=== PATIENT | female | born 1940 | race Caucasian/White ===

== ENCOUNTER 2018-10-17 10:53 | Emergency (ER) | payer MEDICARE, BC ==
--- OUTSIDE RECORDS SUMMARY | 2018-10-17 10:59 | XMS REPORT | Continuity of Care Document ---
:1940 External Reference #:[id number] Author Name Vonda Hardwick Care Team Providers Name Role Phone Stanislav Maldonado MD Care Team Information Feather Edger Unavailable Payers Date Identification Numbers Payment Provider Subscriber Policy Number: [id number] Medicare Vonda Epps PayID: [id number] [address] [place] [address] Policy Number: [id number] BS [employer]ets Vonda Epps PayID: [id number] [address] [address] [place] [address] Problems Active Problems Provider Date Rheumatoid arthritis Van Mccarthy M.D. Onset: 01/28/2012 Medications Mcfp (Current) Use Encounter Van Mccarthy M.D. Onset: Lumbosacral spondylosis without myelopathy Van Mccarthy M.D. Onset: 2011 Taking medication MADDIE Flanagan Onset: 08/24/2014 Social History Type Date Description Comments Sex Unknown ETOH Use Occasionally consumes alcohol Tobacco Use Start: Unknown End: Unknown Patient is a former smoker Smoking Status Reviewed: 09/20/18 Patient is a former smoker Allergies, Adverse Reactions, Alerts Description No Known Drug Allergies Medications Active Medications SIG Qnty Indications Ordering Provider Date Methotrexate 3 tbs by mouth 36tabs M06.09 MADDIE Flanagan 09/20/2018 2.5mg every week Tablets Z79.899 Shingrix 2 doses 4 month 2units Z23 MADDIE Flanagan 09/24/2017 50mcg Suspension apart Rec Simponi inject 50 mg under .5units M06.09 Stanislav Bray M.D. 02/08/2014 50mg/0.5ML Soln the skin every Prefill Syringe month Z79.899 Folic Acid take one tablet by 90tabs Z79.899 Rosibel Sarabia, [facility] 07/04/2010 1mg Tablets mouth every day Multi-Vitamin 1 po qd Unknown Tablets Olmesartan Medoxomil Unknown 20mg Tablets History Medications Methotrexate Sodium Take Four 48tabs M06.09 Rosibel Sarabai, 09/24/2017 - Tablets By Mouth [facility] 09/20/2018 2.5mg Tablets Every Week Z79.899 Malarone Take one tab po 15tabs V65.9 Rosibel Sarabia, 08/24/2014 - 250-100mg starting 2 days [facility] 11/27/2014 Tablets prior trip, continu e during trip and 7 days aftter out of endemic area.with food Cipro 1 by mouth twice 20tabs V65.9 Rosibel Sarabia, 08/24/2014 - 500mg Tablets a day [facility] 11/27/2014 Methotrexate take 4 tablets by 48tabs M06.09 Rosibel Sarabia, 02/08/2014 - 2.5mg mouth every week [facility] 09/24/2017 Tablets Z79.899 Methotrexate 3 tabs 1x per 714.0 Van Mccarthy M.D. 02/08/2014 - 2.5mg Tablets week 02/08/2014 V58.69 Methotrexate 4 tabs by 48tabs 714.0 Van Mccarthy, 02/05/2014 - 2.5mg mouth every M.D. 02/08/2014 Tablets week V58.69 Methotrexate 4 tbs by mouth 714.0 Rosibel Sarabia, [facility] 12/06/2013 - 2.5mg Tablets every week 12/06/2013 V58.69 Methotrexate 3 tbs alternate 48tabs 714.0 Rosibel Sarabia, 03/03/2013 - 2.5mg with 4 tabs by [employer] 12/06/2013 Tablets mouth every week V58.69 Humira Pen inject 40 mg 2units 714.0 Rosibel Sarabia, 07/15/2010 - subcutaneous once [employer] 02/08/2014 40mg/0.8ML Kit every other week V58.69 Methotrexate take 6 tablets 72tabs 714.0 Rosibel Sarabia, 07/15/2010 - 2.5mg by mouth every [employer] 03/03/2013 Tablets week V58.69 Omeprazole 1 po qd prn 30caps Unknown - 20mg 03/03/2013 Capsules Amlodipine Besylate Take One Tablet 30tabs Rosibel Sarabia, MADDIE - By Mouth Every 09/20/2018 2.5mg Tablets Day Immunizations CPT Code Status Date Vaccine Reaction Lot # [id number] Given 01/21/2018 Influenza Virus Vaccine, no immediate reaction [id number] Quadrivalent, Split, noted Preservative Free 80199 Given 02/09/2017 Influenza Virus Vaccine, no immediate reaction [id number] Quadrivalent, Split, noted Preservative Free 35307 Given 10/13/2016 Pneumonia Vaccine No initial reaction [id number] noted 48617 Given 02/05/2015 Influenza Virus Vaccine, [id number] Quadrivalent, Split, Preservative Free 12541 Given 01/02/2015 Pneumococcal Conjugate Vaccine 13 Valent For Intramuscular Use Vital Signs Date Vital Result Comment 09/20/2018 2:36pm Height 61.5 inches 5'1.50" Weight 135.25 lb Heart Rate 71 /min BP Systolic Sitting 124 mmHg BP Diastolic Sitting 72 mmHg O2 % BldC Oximetry 94 % BMI (Body Mass Index) 25.1 kg/m2 01/21/2018 9:38am Height 61.5 inches 5'1.50" Weight 139.25 lb Heart Rate 74 /min BP Systolic Sitting 136 mmHg BP Diastolic Sitting 76 mmHg Body Temperature 98.0 F Pain Level 0 O2 % BldC Oximetry 97 % BMI (Body Mass Index) 25.9 kg/m2 09/24/2017 11:01am Height 61.5 inches 5'1.50" Weight 138.00 lb Heart Rate 70 /min BP Systolic Sitting 136 mmHg BP Diastolic Sitting 78 mmHg Pain Level 0 O2 % BldC Oximetry 96 % BMI (Body Mass Index) 25.6 kg/m2 02/09/2017 10:10am Height 61.5 inches 5'1.50" Weight 137.50 lb Heart Rate 74 /min BP Systolic Sitting 134 mmHg BP Diastolic Sitting 68 mmHg Body Temperature 97.3 F O2 % BldC Oximetry 96 % BMI (Body Mass Index) 25.6 kg/m2 10/13/2016 10:33am Height 61.5 inches 5'1.50" Weight 135.00 lb Heart Rate 80 /min BP Systolic Sitting 140 mmHg BP Diastolic Sitting 70 mmHg Respiratory Rate 14 /min Pain Level 1 BMI (Body Mass Index) 25.1 kg/m2 01/21/2016 1:04pm Height 61.5 inches 5'1.50" Weight 137.50 lb Heart Rate 64 /min BP Systolic Sitting 140 mmHg BP Diastolic Sitting 66 mmHg Respiratory Rate 14 /min Body Temperature 98.8 F Pain Level 1 BMI (Body Mass Index) 25.6 kg/m2 09/27/2015 9:10am Height 61.5 inches 5'1.50" Weight 136.00 lb Heart Rate 80 /min BP Systolic Sitting 138 mmHg BP Diastolic Sitting 78 mmHg Body Temperature 98.4 F Pain Level 1 BMI (Body Mass Index) 25.3 kg/m2 02/05/2015 12:34pm Height 61.5 inches 5'1.50" Weight 136.25 lb Heart Rate 68 /min BP Systolic Sitting 140 mmHg BP Diastolic Sitting 78 mmHg Body Temperature 97.5 F Pain Level 0 BMI (Body Mass Index) 25.3 kg/m2 11/27/2014 9:35am Height 63 inches 5'3" Weight 137.00 lb Heart Rate 70 /min irreg BP Systolic Sitting 138 mmHg BP Diastolic Sitting 78 mmHg Pain Level 0 BMI (Body Mass Index) 24.3 kg/m2 08/27/2014 1:53pm Height 63 inches 5'3" Weight 133.00 lb Heart Rate 84 /min BP Systolic Sitting 140 mmHg BP Diastolic Sitting 78 mmHg Pain Level 1 BMI (Body Mass Index) 23.6 kg/m2 02/08/2014 11:29am Height 63 inches 5'3" Weight 132.50 lb Heart Rate 66 /min BP Systolic Sitting 130 mmHg BP Diastolic Sitting 82 mmHg Pain Level 0 BMI (Body Mass Index) 23.5 kg/m2 12/06/2013 2:27pm Height 63 inches 5'3" Weight 134.00 lb Heart Rate 76 /min BP Systolic Sitting 136 mmHg BP Diastolic Sitting 70 mmHg Pain Level 0 BMI (Body Mass Index) 23.7 kg/m2 09/13/2013 2:31pm Height 63 inches 5'3" Weight 134.00 lb Heart Rate 68 /min BP Systolic Sitting 130 mmHg BP Diastolic Sitting 74 mmHg BMI (Body Mass Index) 23.7 kg/m2 04/21/2013 8:40am Height 63 inches 5'3" Weight 132.50 lb Heart Rate 84 /min BP Systolic Sitting 134 mmHg BP Diastolic Sitting 78 mmHg BMI (Body Mass Index) 23.5 kg/m2 03/03/2013 12:57pm Height 63 inches 5'3" Weight 129.25 lb Heart Rate 76 /min BP Systolic Sitting 136 mmHg BP Diastolic Sitting 64 mmHg BMI (Body Mass Index) 22.9 kg/m2 11/17/2012 2:11pm Weight 131.00 lb Heart Rate 85 /min BP Systolic Sitting 122 mmHg BP Diastolic Sitting 64 mmHg 08/17/2012 2:06pm Height 65 inches 5'5" Weight 138.00 lb Heart Rate 74 /min BP Systolic Sitting 130 mmHg BP Diastolic Sitting 64 mmHg BMI (Body Mass Index) 23.0 kg/m2 04/21/2012 9:28am Height 65 inches 5'5" Weight 137.00 lb Heart Rate 77 /min BP Systolic Sitting 119 mmHg BP Diastolic Sitting 68 mmHg BMI (Body Mass Index) 22.8 kg/m2 01/28/2012 9:03am Height 65 inches 5'5" Weight 138.00 lb Heart Rate 71 /min BP Systolic Sitting 119 mmHg BP Diastolic Sitting 68 mmHg BMI (Body Mass Index) 23.0 kg/m2 10/27/2011 9:10am Height 65 inches 5'5" Weight 138.00 lb Heart Rate 72 /min BP Systolic Sitting 120 mmHg BP Diastolic Sitting 73 mmHg BMI (Body Mass Index) 23.0 kg/m2 07/14/2011 9:03am Height 65 inches 5'5" Weight 141.00 lb Heart Rate 78 /min BP Systolic Sitting 124 mmHg BP Diastolic Sitting 71 mmHg BMI (Body Mass Index) 23.5 kg/m2 03/05/2011 8:51am Weight 138.00 lb Heart Rate 76 /min BP Systolic 112 mmHg BP Diastolic 64 mmHg 12/15/2010 9:33am Height 61 inches 5'1" Weight 138.00 lb Heart Rate 78 /min BP Systolic 138 mmHg BP Diastolic 90 mmHg BMI (Body Mass Index) 26.1 kg/m2 10/07/2010 9:17am Height 61 inches 5'1" Weight 136.00 lb Heart Rate 72 /min BP Systolic 140 mmHg BP Diastolic 90 mmHg BMI (Body Mass Index) 25.7 kg/m2 07/15/2010 2:55pm Height 61 inches 5'1" Weight 138.00 lb Heart Rate 80 /min BP Systolic 138 mmHg BP Diastolic 76 mmHg BMI (Body Mass Index) 26.1 kg/m2 Results Test Date Facility Test Result H/L Range Note CBC Auto Diff 02/02/2018 [facility] White Blood 7.6 10^3/uL N 3.5-10.[address] [place] [address] [phone] Red Blood Count 3.56 10^6/uL Low 4.00-5.40 Hemoglobin 12.1 g/dL N 12.0-16.0 Hematocrit 35 % N 35-47 Mean Corpuscular Volume 99 fL High 80-97 Mean Corpuscular Hemoglobin 34 pg High 27-31 Mean Corpuscular HGB Conc 34 g/dL N 31-36 Red Cell Distribution Width 14 % N 10.5-15 Platelet Count 261 10^3/uL N 150-450 Mean Platelet Volume 7.9 um3 N 7.4-10.4 Abs Neutrophils 4.0 10^3/uL N 1.5-7.7 Abs Lymphocytes 2.7 10^3/uL N 1.0-4.8 Abs Monocytes 0.8 10^3/uL N 0-0.8 Abs Eosinophils 0.1 10^3/uL N 0-0.6 Abs Basophils 0 10^3/uL N 0-0.2 Abs Nucleated RBC 0 10^3/uL Granulocyte % 52.8 % N 38-83 Lymphocyte % 35.5 % N 25-47 Monocyte % 10.3 % High 0-7 Eosinophil % 1.1 % N 0-6 Basophil % 0.3 % N 0-2 Nucleated Red Blood Cells % 0 Comp Metabolic Panel 02/02/2018 [facility] Sodium 136 mmol/L N 135-[address] [place] [address] [phone] Potassium 5.0 mmol/L N 3.5-5.0 Chloride 103 mmol/L N 101-111 Co2 Carbon Dioxide 32 mmol/L N 22-32 Anion Gap 1 mmol/L Low 2-11 Glucose 82 mg/dL N 70-100 Blood Urea Nitrogen 18 mg/dL N 6-24 Creatinine 0.83 mg/dL N 0.51-0.95 BUN/Creatinine Ratio 21.7 High 8-20 Calcium 9.2 mg/dL N 8.6-10.3 Total Protein 6.5 g/dL N 6.4-8.9 Albumin 4.1 g/dL N 3.2-5.2 Globulin 2.4 g/dL N 2-4 Albumin/Globulin Ratio 1.7 N 1-3 Total Bilirubin 0.70 mg/dL N 0.2-1.0 Alkaline Phosphatase 54 U/L N 34-104 Alt 16 U/L N 7-52 Ast 20 U/L N 13-39 Egfr Non- 66.7 >60 Egfr 80.7 >60 1 Laboratory test 02/02/2018 [facility] C Reactive 2.35 mg/L N < 8.[address] [place] [address] [phone] Erythrocyte Sed Rate 19 mm/Hr N 0-40 Lipid Profile 11/23/2017 [facility] Triglycerides 89 mg/dL 2 (Trig/Chol/HDL) [address] [place] [address] [phone] Cholesterol 215 mg/dL 3 HDL Cholesterol 82.3 mg/dL 4 LDL Cholesterol 115 mg/dL 5 Comp Metabolic Panel 11/23/2017 [facility] Sodium 135 mmol/L N 135-[address] [place] [address] [phone] Potassium 4.3 mmol/L N 3.5-5.0 Chloride 101 mmol/L N 101-111 Co2 Carbon Dioxide 28 mmol/L N 22-32 Anion Gap 6 mmol/L N 2-11 Glucose 92 mg/dL N 70-100 Blood Urea Nitrogen 15 mg/dL N 6-24 Creatinine 0.83 mg/dL N 0.51-0.95 BUN/Creatinine Ratio 18.1 N 8-20 Calcium 9.1 mg/dL N 8.6-10.3 Total Protein 6.8 g/dL N 6.4-8.9 Albumin 4.0 g/dL N 3.2-5.2 Globulin 2.8 g/dL N 2-4 Albumin/Globulin Ratio 1.4 N 1-3 Total Bilirubin 0.90 mg/dL N 0.2-1.0 Alkaline Phosphatase 55 U/L N 34-104 Alt 16 U/L N 7-52 Ast 22 U/L N 13-39 Egfr Non- 66.7 >60 Egfr 80.7 >60 6 Laboratory test 11/23/2017 [facility] C Reactive 2.86 mg/L N < 8.01 [address] [place] [address] [phone] Erythrocyte Sed Rate 24 mm/Hr N 0-40 CBC Auto Diff 11/23/2017 [facility] White Blood 5.2 10^3/uL N 3.5-10.[address] [place] [address] [phone] Red Blood Count 3.67 10^6/uL Low 4.00-5.40 Hemoglobin 12.5 g/dL N 12.0-16.0 Hematocrit 36 % N 35-47 Mean Corpuscular Volume 99 fL High 80-97 Mean Corpuscular Hemoglobin 34 pg High 27-31 Mean Corpuscular HGB Conc 35 g/dL N 31-36 Red Cell Distribution Width 13 % N 10.5-15 Platelet Count 272 10^3/uL N 150-450 Mean Platelet Volume 8.1 um3 N 7.4-10.4 Abs Neutrophils 2.4 10^3/uL N 1.5-7.7 Abs Lymphocytes 2.1 10^3/uL N 1.0-4.8 Abs Monocytes 0.6 10^3/uL N 0-0.8 Abs Eosinophils 0.1 10^3/uL N 0-0.6 Abs Basophils 0 10^3/uL N 0-0.2 Abs Nucleated RBC 0 10^3/uL Granulocyte % 47.0 % N 38-83 Lymphocyte % 39.9 % N 25-47 Monocyte % 11.1 % High 0-7 Eosinophil % 1.5 % N 0-6 Basophil % 0.5 % N 0-2 Nucleated Red Blood Cells % 0 Comp Metabolic Panel 02/03/2017 [facility] Sodium 135 mmol/L N 133-[address] [place] [address] [phone] Potassium 4.7 mmol/L N 3.5-5.0 Chloride 100 mmol/L Low 101-111 Co2 Carbon Dioxide 31 mmol/L N 22-32 Anion Gap 4 mmol/L N 2-11 Glucose 84 mg/dL N 70-100 Blood Urea Nitrogen 11 mg/dL N 6-24 Creatinine 0.80 mg/dL N 0.51-0.95 BUN/Creatinine Ratio 13.8 N 8-20 Calcium 9.2 mg/dL N 8.6-10.3 Total Protein 6.9 g/dL N 6.4-8.9 Albumin 4.1 g/dL N 3.2-5.2 Globulin 2.8 g/dL N 2-4 Albumin/Globulin Ratio 1.5 N 1-3 Total Bilirubin 1.00 mg/dL N 0.2-1.0 Alkaline Phosphatase 51 U/L N 34-104 Alt 17 U/L N 7-52 Ast 24 U/L N 13-39 Egfr Non- 69.7 N >60 Egfr 89.7 N >60 8 Laboratory test 02/03/2017 [facility] C Reactive 2.63 mg/L N < 5.00 [address] [place] [address] [phone] Erythrocyte Sed Rate 20 mm/Hr N 0-40 Lipid Profile 02/03/2017 [facility] Triglycerides 74 mg/dL N 10 (Trig/Chol/HDL) [address] [place] [address] [phone] Cholesterol 234 mg/dL N 11 HDL Cholesterol 92.8 mg/dL N 12 LDL Cholesterol 126 mg/dL N 13 CBC Auto Diff 02/03/2017 [facility] White Blood 4.2 10^3/uL N 3.5-10.[address] [place] [address] [phone] Red Blood Count 3.72 10^6/uL Low 4.0-5.4 Hemoglobin 12.9 g/dL N 12.0-16.0 Hematocrit 37 % N 35-47 Mean Corpuscular Volume 100 fL High 80-97 Mean Corpuscular Hemoglobin 35 pg High 27-31 Mean Corpuscular HGB Conc 35 g/dL N 31-36 Red Cell Distribution Width 13 % N 10.5-15 Platelet Count 275 10^3/uL N 150-450 Mean Platelet Volume 8 um3 N 7.4-10.4 Abs Neutrophils 1.9 10^3/uL N 1.5-7.7 Abs Lymphocytes 1.8 10^3/uL N 1.0-4.8 Abs Monocytes 0.4 10^3/uL N 0-0.8 Abs Eosinophils 0.1 10^3/uL N 0-0.6 Abs Basophils 0 10^3/uL N 0-0.2 Abs Nucleated RBC 0 10^3/uL N Granulocyte % 45.1 % N 38-83 Lymphocyte % 42.5 % N 25-47 Monocyte % 10.7 % High 1-9 Eosinophil % 1.3 % N 0-6 Basophil % 0.4 % N 0-2 Nucleated Red Blood Cells % 0 N Comp Metabolic Panel 12/08/2016 [facility] Sodium 136 mmol/L N 133-[address] [place] [address] [phone] Potassium 4.3 mmol/L N 3.5-5.0 Chloride 102 mmol/L N 101-111 Co2 Carbon Dioxide 29 mmol/L N 22-32 Anion Gap 5 mmol/L N 2-11 Glucose 84 mg/dL N 70-100 Blood Urea Nitrogen 18 mg/dL N 6-24 Creatinine 0.76 mg/dL N 0.51-0.95 BUN/Creatinine Ratio 23.7 High 8-20 Calcium 8.8 mg/dL N 8.6-10.3 Total Protein 6.7 g/dL N 6.4-8.9 Albumin 4.0 g/dL N 3.2-5.2 Globulin 2.7 g/dL N 2-4 Albumin/Globulin Ratio 1.5 N 1-3 Total Bilirubin 0.70 mg/dL N 0.2-1.0 Alkaline Phosphatase 50 U/L N 34-104 Alt 13 U/L N 7-52 Ast 20 U/L N 13-39 Egfr Non- 74.0 N >60 Egfr 95.2 N >60 14 CBC Auto Diff 12/08/2016 [facility] White Blood 6.3 10^3/uL N 3.5-10.[address] [place] [address] [phone] Red Blood Count 3.43 10^6/uL Low 4.0-5.4 Hemoglobin 12.0 g/dL N 12.0-16.0 Hematocrit 35 % N 35-47 Mean Corpuscular Volume 102 fL High 80-97 Mean Corpuscular Hemoglobin 35 pg High 27-31 Mean Corpuscular HGB Conc 34 g/dL N 31-36 Red Cell Distribution Width 14 % N 10.5-15 Platelet Count 252 10^3/uL N 150-450 Mean Platelet Volume 9 um3 N 7.4-10.4 Abs Neutrophils 3.1 10^3/uL N 1.5-7.7 Abs Lymphocytes 2.6 10^3/uL N 1.0-4.8 Abs Monocytes 0.5 10^3/uL N 0-0.8 Abs Eosinophils 0.1 10^3/uL N 0-0.6 Abs Basophils 0 10^3/uL N 0-0.2 Abs Nucleated RBC 0.01 10^3/uL N Granulocyte % 48.8 % N 38-83 Lymphocyte % 40.8 % N 25-47 Monocyte % 8.7 % N 1-9 Eosinophil % 1.1 % N 0-6 Basophil % 0.6 % N 0-2 Nucleated Red Blood Cells % 0.1 N Laboratory test 12/08/2016 [facility] Erythrocyte Sed 25 mm/Hr N 0-[address] [place] [address] [phone] C Reactive Protein 3.14 mg/L N < 5.00 15 Laboratory test 10/12/2016 [facility] C Reactive 3.09 mg/L N < 5.00 [address] [place] [address] [phone] Erythrocyte Sed Rate 26 mm/Hr N 0-40 Hemoglobin A1c (Glyco HGB) 5.4 % N Less than 6.0 17 CMP Panel 10/12/2016 [facility] Sodium 134 mmol/L N 133-[address] [place] [address] [phone] Potassium 4.3 mmol/L N 3.5-5.0 Chloride 101 mmol/L N 101-111 Co2 Carbon Dioxide 28 mmol/L N 22-32 Anion Gap 5 mmol/L N 2-11 Glucose 152 mg/dL High 70-100 Blood Urea Nitrogen 12 mg/dL N 6-24 Creatinine 0.79 mg/dL N 0.51-0.95 BUN/Creatinine Ratio 15.2 N 8-20 Calcium 9.1 mg/dL N 8.6-10.3 Total Protein 6.7 g/dL N 6.4-8.9 Albumin 4.0 g/dL N 3.2-5.2 Globulin 2.7 g/dL N 2-4 Albumin/Globulin Ratio 1.5 N 1-3 Total Bilirubin 0.70 mg/dL N 0.2-1.0 Alkaline Phosphatase 55 U/L N 34-104 Alt 14 U/L N 7-52 Ast 20 U/L N 13-39 Egfr Non- 70.8 N >60 Egfr 91.0 N >60 18 CBC W/Auto 10/12/2016 [facility] White Blood 6.7 10^3/uL N 3.5 -10.[address] [place] [address] [phone] Red Blood Count 3.62 10^6/uL Low 4.0-5.4 Hemoglobin 12.0 g/dL N 12.0-16.0 Hematocrit 36 % N 35-47 Mean Corpuscular Volume 99 fL High 80-97 Mean Corpuscular Hemoglobin 33 pg High 27-31 Mean Corpuscular HGB Conc 34 g/dL N 31-36 Red Cell Distribution Width 14 % N 10.5-15 Platelet Count 245 10^3/uL N 150-450 Mean Platelet Volume 8 um3 N 7.4-10.4 Abs Neutrophils 3.7 10^3/uL N 1.5-7.7 Abs Lymphocytes 2.3 10^3/uL N 1.0-4.8 Abs Monocytes 0.5 10^3/uL N 0-0.8 Abs Eosinophils 0.1 10^3/uL N 0-0.6 Abs Basophils 0 10^3/uL N 0-0.2 Abs Nucleated RBC 0 10^3/uL N Granulocyte % 55.8 % N 38-83 Lymphocyte % 34.9 % N 25-47 Monocyte % 7.6 % N 1-9 Eosinophil % 1.2 % N 0-6 Basophil % 0.5 % N 0-2 Nucleated Red Blood Cells % 0.1 N Laboratory test 12/23/2015 [facility] Erythrocyte Sed 20 mm/Hr N 0-[address] [place] [address] [phone] C Reactive Protein 2.33 mg/L N < 5.00 19 CMP Panel 12/23/2015 [facility] Sodium 135 mmol/L N 133-[address] [place] [address] [phone] Potassium 4.3 mmol/L N 3.5-5.0 Chloride 101 mmol/L N 101-111 Co2 Carbon Dioxide 31 mmol/L N 22-32 Anion Gap 3 mmol/L N 2-11 Glucose 109 mg/dL High 70-100 Blood Urea Nitrogen 15 mg/dL N 6-24 Creatinine 0.76 mg/dL N 0.51-0.95 BUN/Creatinine Ratio 19.7 N 8-20 Calcium 9.2 mg/dL N 8.6-10.3 Total Protein 6.9 g/dL N 6.4-8.9 Albumin 4.1 g/dL N 3.2-5.2 Globulin 2.8 g/dL N 2-4 Albumin/Globulin Ratio 1.5 N 1-3 Total Bilirubin 0.70 mg/dL N 0.2-1.0 Alkaline Phosphatase 55 U/L N 34-104 Alt 14 U/L N 7-52 Ast 22 U/L N 13-39 Egfr Non- 74.2 N >60 Egfr 95.4 N >60 20 CBC W/Auto 12/23/2015 [facility] White Blood 5.4 10^3/uL N 3.5 -10.[address] [place] [address] [phone] Red Blood Count 3.83 10^6/uL Low 4.0-5.4 Hemoglobin 12.7 g/dL N 12.0-16.0 Hematocrit 38 % N 35-47 Mean Corpuscular Volume 99 fL High 80-97 Mean Corpuscular Hemoglobin 33 pg High 27-31 Mean Corpuscular HGB Conc 33 g/dL N 31-36 Red Cell Distribution Width 14 % N 10.5-15 Platelet Count 269 10^3/uL N 150-450 Mean Platelet Volume 9 um3 N 7.4-10.4 Abs Neutrophils 2.6 10^3/uL N 1.5-7.7 Abs Lymphocytes 2.3 10^3/uL N 1.0-4.8 Abs Monocytes 0.5 10^3/uL N 0-0.8 Abs Eosinophils 0.1 10^3/uL N 0-0.6 Abs Basophils 0 10^3/uL N 0-0.2 Abs Nucleated RBC 0 10^3/uL N Granulocyte % 48.5 % N 38-83 Lymphocyte % 41.5 % N 25-47 Monocyte % 8.6 % N 1-9 Eosinophil % 0.9 % N 0-6 Basophil % 0.5 % N 0-2 Nucleated Red Blood Cells % 0.1 N Laboratory test 10/01/2015 [facility] C Reactive 11.69 mg/L High < 5.00 [address] [place] [address] [phone] CBC Auto Diff 10/01/2015 [facility] White Blood 4.5 N 3.5- 10.[address] Count 10^3/[place] [address] [phone] Red Blood Count 3.68 10^6/uL Low 4.0-5.4 Hemoglobin 12.3 g/dL N 12.0-16.0 Hematocrit 38 % N 35-47 Mean Corpuscular Volume 102 fL High 80-97 Mean Corpuscular Hemoglobin 33 pg High 27-31 Mean Corpuscular HGB Conc 33 g/dL N 31-36 Red Cell Distribution Width 13 % N 10.5-15 Platelet Count 265 10^3/uL N 150-450 Mean Platelet Volume 8 um3 N 7.4-10.4 Abs Neutrophils 2.1 10^3/uL N 1.5-7.7 Abs Lymphocytes 1.7 10^3/uL N 1.0-4.8 Abs Monocytes 0.6 10^3/uL N 0-0.8 Abs Eosinophils 0.1 10^3/uL N 0-0.6 Abs Basophils 0 10^3/uL N 0-0.2 Abs Nucleated RBC 0 10^3/uL N Granulocyte % 46.8 % N 38-83 Lymphocyte % 38.2 % N 25-47 Monocyte % 12.6 % High 1-9 Eosinophil % 2.0 % N 0-6 Basophil % 0.4 % N 0-2 Nucleated Red Blood Cells % 0.1 N Laboratory test 10/01/2015 [facility] Erythrocyte Sed 37 mm/Hr N 0-40 [address] [place] [address] [phone] Comp Metabolic 10/01/2015 [facility] Sodium 135 mmol/L N 133- [address] [place] [address] [phone] Potassium 4.6 mmol/L N 3.5-5.0 Chloride 99 mmol/L Low 101-111 Co2 Carbon Dioxide 31 mmol/L N 22-32 Anion Gap 5 mmol/L N 2-11 Glucose 82 mg/dL N 70-100 Blood Urea Nitrogen 14 mg/dL N 6-24 Creatinine 0.78 mg/dL N 0.51-0.95 BUN/Creatinine Ratio 17.9 N 8-20 Calcium 9.3 mg/dL N 8.6-10.3 Total Protein 7.1 g/dL N 6.4-8.9 Albumin 4.2 g/dL N 3.2-5.2 Globulin 2.9 g/dL N 2-4 Albumin/Globulin Ratio 1.4 N 1-3 Total Bilirubin 0.80 mg/dL N 0.2-1.0 Alkaline Phosphatase 54 U/L N 34-104 Alt 13 U/L N 7-52 Ast 20 U/L N 13-39 Egfr Non- 72.0 N >60 Egfr 92.6 N >60 23 CBC Auto Diff 02/04/2015 [facility] White Blood 5.8 10^3/uL N 4.8-10.[address] [place] [address] [phone] Red Blood Count 3.70 10^6/uL Low 4.0-5.4 Hemoglobin 12.7 g/dL N 12.0-16.0 Hematocrit 38 % N 35-47 Mean Corpuscular Volume 102 fL High 80-97 Mean Corpuscular Hemoglobin 34 pg High 27-31 Mean Corpuscular HGB Conc 34 g/dL N 31-36 Red Cell Distribution Width 14 % N 10.5-15 Platelet Count 278 10^3/uL N 150-450 Mean Platelet Volume 9 um3 N 7.4-10.4 Abs Neutrophils 3.2 10^3/uL N 1.5-7.7 Abs Lymphocytes 2.0 10^3/uL N 1.0-4.8 Abs Monocytes 0.5 10^3/uL N 0-0.8 Abs Eosinophils 0.1 10^3/uL N 0-0.6 Abs Basophils 0 10^3/uL N 0-0.2 Abs Nucleated RBC 0.01 10^3/uL N Granulocyte % 54.2 % N 38-83 Lymphocyte % 34.3 % N 25-47 Monocyte % 9.2 % High 1-9 Eosinophil % 1.4 % N 0-6 Basophil % 0.9 % N 0-2 Nucleated Red Blood Cells % 0.2 N Comp Metabolic Panel 02/04/2015 [facility] Sodium 133 mmol/L N 133-[address] [place] [address] [phone] Potassium 4.4 mmol/L N 3.5-5.0 Chloride 96 mmol/L Low 101-111 Co2 Carbon Dioxide 31 mmol/L N 22-32 Anion Gap 6 mmol/L N 2-11 Glucose 79 mg/dL N 70-100 Blood Urea Nitrogen 13 mg/dL N 6-24 Creatinine 0.71 mg/dL N 0.51-0.95 BUN/Creatinine Ratio 18.3 N 8-20 Calcium 9.2 mg/dL N 8.6-10.3 Total Protein 7.1 g/dL N 6.4-8.9 Albumin 4.2 g/dL N 3.2-5.2 Globulin 2.9 g/dL N 2-4 Albumin/Globulin Ratio 1.4 N 1-3 Total Bilirubin 0.80 mg/dL N 0.2-1.0 Alkaline Phosphatase 57 U/L N 34-104 Alt 20 U/L N 7-52 Ast 24 U/L N 13-39 Egfr Non- 80.5 N >60 Egfr 103.5 N >60 24 Laboratory test 02/04/2015 [facility] Erythrocyte Sed 21 mm/Hr N 0-[address] [place] [address] [phone] C Reactive Protein 3.35 mg/L N < 5.00 25 Comp Metabolic Panel 11/26/2014 Sodium 135 mmol/L N 133-145 Potassium 4.4 mmol/L N 3.5-5.0 Chloride 101 mmol/L N 101-111 Co2 Carbon Dioxide 29 mmol/L N 22-32 Anion Gap 5 mmol/L N 2-11 Glucose 93 mg/dL N 70-100 Blood Urea Nitrogen 17 mg/dL N 6-24 Creatinine 0.82 mg/dL N 0.51-0.95 BUN/Creatinine Ratio 20.7 High 8-20 Calcium 9.1 mg/dL N 8.6-10.3 Total Protein 6.7 g/dL N 6.4-8.9 Albumin 4.1 g/dL N 3.2-5.2 Globulin 2.6 g/dL N 2-4 Albumin/Globulin Ratio 1.6 N 1-3 Total Bilirubin 0.70 mg/dL N 0.2-1.0 Alkaline Phosphatase 57 U/L N 34-104 Alt 18 U/L N 7-52 Ast 23 U/L N 13-39 Egfr Non- 68.1 N >60 Egfr 87.6 N >60 26 CBC Auto Diff 11/26/2014 White Blood Count 6.2 10^3/uL N 4.8-10.8 Red Blood Count 3.56 10^6/uL Low 4.0-5.4 Hemoglobin 12.3 g/dL N 12.0-16.0 Hematocrit 36 % N 35-47 Mean Corpuscular Volume 101 fL High 80-97 Mean Corpuscular Hemoglobin 35 pg High 27-31 Mean Corpuscular HGB Conc 34 g/dL N 31-36 Red Cell Distribution Width 13 % N 10.5-15 Platelet Count 261 10^3/uL N 150-450 Mean Platelet Volume 9 um3 N 7.4-10.4 Abs Neutrophils 3.2 10^3/uL N 1.5-7.7 Abs Lymphocytes 2.2 10^3/uL N 1.0-4.8 Abs Monocytes 0.6 10^3/uL N 0-0.8 Abs Eosinophils 0.1 10^3/uL N 0-0.6 Abs Basophils 0 10^3/uL N 0-0.2 Abs Nucleated RBC 0 10^3/uL N Granulocyte % 52.3 % N 38-83 Lymphocyte % 35.1 % N 25-47 Monocyte % 10.4 % High 1-9 Eosinophil % 1.7 % N 0-6 Basophil % 0.5 % N 0-2 Nucleated Red Blood Cells % 0 N Laboratory test finding 11/26/2014 Erythrocyte Sed Rate 26 mm/Hr N 0-40 27 C Reactive Protein 3.72 mg/L N < 5.00 28 Laboratory test 01/12/2014 [facility] (Anti-Nuclear Reflexed to FA Abnormal Negative finding AB) Screen Histone Antibodies 1.2 U Abnormal 29 [facility] Hep-2 01/12/2014 [facility] Pattern Homogeneous N Negative [facility] Titer 1:320 N <1:80 [facility] Reviewed By MD Loly Cedeno N 30 Comp Metabolic Panel 01/12/2014 [facility] Sodium 136 mmol/L N 133-[address] [place] [address] [phone] Potassium 4.3 mmol/L N 3.7-5.6 Chloride 103 mmol/L N 101-111 Co2 Carbon Dioxide 27 mmol/L N 22-32 Anion Gap 6 mmol/L N 2-11 Glucose 80 mg/dL N 70-100 Blood Urea Nitrogen 12 mg/dL N 6-24 Creatinine 0.72 mg/dL N 0.51-0.95 BUN/Creatinine Ratio 16.7 N 8-20 Calcium 8.9 mg/dL N 8.6-10.3 Total Protein 6.9 g/dL N 6.4-8.9 Albumin 4.1 g/dL N 3.2-5.2 Globulin 2.8 g/dL N 2-4 Albumin/Globulin Ratio 1.5 N 1-3 Total Bilirubin 0.70 mg/dL N 0.2-1.0 Alkaline Phosphatase 65 U/L N 34-104 Alt 13 U/L N 7-52 Ast 20 U/L N 13-39 Egfr Non- 79.4 N >60 Egfr 102.1 N >60 31 Laboratory test 01/12/2014 [facility] C Reactive 5.68 mg/L High < 5.00 [address] [place] [address] [phone] CBC Auto Diff 01/12/2014 [facility] White Blood 5.5 N 4.8- 10.[address] Count 10^3/[place] [address] [phone] Red Blood Count 3.44 10^6/uL Low 4.0-5.4 Hemoglobin 11.8 g/dL Low 12.0-16.0 Hematocrit 34 % Low 35-47 Mean Corpuscular Volume 98 fL High 80-97 Mean Corpuscular Hemoglobin 34 pg High 27-31 Mean Corpuscular HGB Conc 35 g/dL N 31-36 Red Cell Distribution Width 13 % N 10.5-15 Platelet Count 251 10^3/uL N 150-450 Mean Platelet Volume 8 um3 N 7.4-10.4 Abs Neutrophils 2.9 10^3/uL N 1.5-7.7 Abs Lymphocytes 2.0 10^3/uL N 1.0-4.8 Abs Monocytes 0.5 10^3/uL N 0-0.8 Abs Eosinophils 0.1 10^3/uL N 0-0.6 Abs Basophils 0 10^3/uL N 0-0.2 Abs Nucleated RBC 0 10^3/uL N Granulocyte % 52.6 % N 38-83 Lymphocyte % 36.4 % N 25-47 Monocyte % 9.2 % High 1-9 Eosinophil % 1.1 % N 0-6 Basophil % 0.7 % N 0-2 Nucleated Red Blood Cells % 0 N Laboratory test 01/12/2014 [facility] Erythrocyte Sed 30 mm/Hr N 0-[address] [place] [address] [phone] Comp Metabolic 11/30/2013 Sodium 136 mmol/L N 133-145 Panel Potassium 4.3 mmol/L N 3.7-5.6 Chloride 101 mmol/L N 101-111 Co2 Carbon Dioxide 30 mmol/L N 22-32 Anion Gap 5 mmol/L N 2-11 Glucose 84 mg/dL N 70-100 Blood Urea Nitrogen 13 mg/dL N 6-24 Creatinine 0.77 mg/dL N 0.51-0.95 BUN/Creatinine Ratio 16.9 N 8-20 Calcium 9.2 mg/dL N 8.6-10.3 Total Protein 7.1 g/dL N 6.4-8.9 Albumin 4.2 g/dL N 3.2-5.2 Globulin 2.9 g/dL N 2-4 Albumin/Globulin Ratio 1.4 N 1-3 Total Bilirubin 0.80 mg/dL N 0.2-1.0 Alkaline Phosphatase 51 U/L N 34-104 Alt 15 U/L N 7-52 Ast 21 U/L N 13-39 Egfr Non- 73.5 N >60 Egfr 94.5 N >60 33 CBC Auto Diff 11/30/2013 White Blood Count 5.5 10^3/uL N 4.8-10.8 Red Blood Count 3.61 10^6/uL Low 4.0-5.4 Hemoglobin 12.5 g/dL N 12.0-16.0 Hematocrit 36 % N 35-47 Mean Corpuscular Volume 100 fL High 80-97 Mean Corpuscular Hemoglobin 35 pg High 27-31 Mean Corpuscular HGB Conc 35 g/dL N 31-36 Red Cell Distribution Width 13 % N 10.5-15 Platelet Count 251 10^3/uL N 150-450 Mean Platelet Volume 8 um3 N 7.4-10.4 Abs Neutrophils 2.7 10^3/uL N 1.5-7.7 Abs Lymphocytes 2.3 10^3/uL N 1.0-4.8 Abs Monocytes 0.5 10^3/uL N 0-0.8 Abs Eosinophils 0.1 10^3/uL N 0-0.6 Abs Basophils 0 10^3/uL N 0-0.2 Abs Nucleated RBC 0 10^3/uL N Granulocyte % 48.5 % N 38-83 Lymphocyte % 41.4 % N 25-47 Monocyte % 8.6 % N 1-9 Eosinophil % 1.2 % N 0-6 Basophil % 0.3 % N 0-2 Nucleated Red Blood Cells % 0 N Laboratory test finding 11/30/2013 Erythrocyte Sed Rate 25 mm/Hr N 0-40 C Reactive Protein 2.40 mg/L N < 5.00 34 CBC Auto Diff 10/09/2013 [facility] White Blood 6.2 10^3/uL N 4.8-10.[address] [place] [address] [phone] Red Blood Count 3.38 10^6/uL Low 4.0-5.4 Hemoglobin 11.8 g/dL Low 12.0-16.0 Hematocrit 34 % Low 35-47 Mean Corpuscular Volume 100 fL High 80-97 Mean Corpuscular Hemoglobin 35 pg High 27-31 Mean Corpuscular HGB Conc 35 g/dL N 31-36 Red Cell Distribution Width 13 % N 10.5-15 Platelet Count 270 10^3/uL N 150-450 Mean Platelet Volume 8 um3 N 7.4-10.4 Abs Neutrophils 3.1 10^3/uL N 1.5-7.7 Abs Lymphocytes 2.3 10^3/uL N 1.0-4.8 Abs Monocytes 0.6 10^3/uL N 0-0.8 Abs Eosinophils 0.1 10^3/uL N 0-0.6 Abs Basophils 0.1 10^3/uL N 0-0.2 Abs Nucleated RBC 0.01 10^3/uL N Granulocyte % 50.8 % N 38-83 Lymphocyte % 37.1 % N 25-47 Monocyte % 9.7 % High 1-9 Eosinophil % 0.9 % N 0-6 Basophil % 1.5 % N 0-2 Nucleated Red Blood Cells % 0.2 N Comp Metabolic Panel 10/09/2013 [facility] Sodium 136 mmol/L N 133-[address] [place] [address] [phone] Potassium 4.0 mmol/L N 3.7-5.6 Chloride 103 mmol/L N 101-111 Co2 Carbon Dioxide 30 mmol/L N 22-32 Anion Gap 3 mmol/L N 2-11 Glucose 80 mg/dL N 70-100 Blood Urea Nitrogen 16 mg/dL N 6-24 Creatinine 0.76 mg/dL N 0.51-0.95 BUN/Creatinine Ratio 21.1 High 8-20 Calcium 9.0 mg/dL N 8.6-10.3 Total Protein 6.7 g/dL N 6.4-8.9 Albumin 4.2 g/dL N 3.2-5.2 Globulin 2.5 g/dL N 2-4 Albumin/Globulin Ratio 1.7 N 1-3 Total Bilirubin 0.60 mg/dL N 0.2-1.0 Alkaline Phosphatase 52 U/L N 34-104 Alt 16 U/L N 7-52 Ast 23 U/L N 13-39 Egfr Non- 74.6 N >60 Egfr 95.9 N >60 35 Laboratory test 10/09/2013 [facility] C Reactive 3.33 mg/L N < 5.00 [address] [place] [address] [phone] Erythrocyte Sed Rate 24 mm/Hr N 0-40 Comp Metabolic Panel 08/11/2013 Sodium 138 mmol/L N 133-145 Potassium 4.1 mmol/L N 3.7-5.6 Chloride 101 mmol/L N 101-111 Co2 Carbon Dioxide 30 mmol/L N 22-32 Anion Gap 7 mmol/L N 2-11 Glucose 105 mg/dL High 70-100 Blood Urea Nitrogen 14 mg/dL N 6-24 Creatinine 0.76 mg/dL N 0.51-0.95 BUN/Creatinine Ratio 18.4 N 8-20 Calcium 9.3 mg/dL N 8.6-10.3 Total Protein 6.7 g/dL N 6.4-8.9 Albumin 4.4 g/dL N 3.2-5.2 Globulin 2.3 g/dL N 2-4 Albumin/Globulin Ratio 1.9 N 1-3 Total Bilirubin 1.20 mg/dL High 0.2-1.0 Alkaline Phosphatase 50 U/L N 34-104 Alt 15 U/L N 7-52 Ast 21 U/L N 13-39 Egfr Non- 74.6 N >60 Egfr 95.9 N >60 37 CBC Auto Diff 08/11/2013 White Blood Count 6.3 10^3/uL N 4.8-10.8 Red Blood Count 3.50 10^6/uL Low 4.0-5.4 Hemoglobin 12.4 g/dL N 12.0-16.0 Hematocrit 35 % N 35-47 Mean Corpuscular Volume 100 fL High 80-97 Mean Corpuscular Hemoglobin 36 pg High 27-31 Mean Corpuscular HGB Conc 35 g/dL N 31-36 Red Cell Distribution Width 13 % N 10.5-15 Platelet Count 262 10^3/uL N 150-450 Mean Platelet Volume 9 um3 N 7.4-10.4 Abs Neutrophils 3.2 10^3/uL N 1.5-7.7 Abs Lymphocytes 2.6 10^3/uL N 1.0-4.8 Abs Monocytes 0.5 10^3/uL N 0-0.8 Abs Eosinophils 0.1 10^3/uL N 0-0.6 Abs Basophils 0 10^3/uL N 0-0.2 Abs Nucleated RBC 0.01 10^3/uL N Granulocyte % 50.4 % N 38-83 Lymphocyte % 40.3 % N 25-47 Monocyte % 7.7 % N 1-9 Eosinophil % 1.1 % N 0-6 Basophil % 0.5 % N 0-2 Nucleated Red Blood Cells % 0.1 N Laboratory test finding 08/11/2013 C Reactive Protein 3.35 mg/L N < 5.00 38 Erythrocyte Sed Rate 22 mm/Hr N 0-40 Comp Metabolic Panel 04/05/2013 [facility] Sodium 137 mmol/L 133-[address] [place] [address] [phone] Potassium 3.9 mmol/L 3.5-5.0 Chloride 101 mmol/L 101-111 Co2 Carbon Dioxide 30.0 mmol/L 22-32 Anion Gap 6.0 mmol/L 2-11 Glucose 90 mg/dL 70-100 Blood Urea Nitrogen 12 mg/dL 6-24 Creatinine 0.70 mg/dL 0.50-1.40 BUN/Creatinine Ratio 17.1 8-20 Calcium 9.2 mg/dL 8.1-9.9 Total Protein 6.5 g/dL 6.2-8.1 Albumin 4.3 g/dL 3.2-5.2 Globulin 2.2 g/dL 2-4 Albumin/Globulin Ratio 2.0 1-3 Total Bilirubin 1.1 mg/dL 0.4-1.5 Alkaline Phosphatase 52 U/L 30-110 Alt 21 U/L 14-54 Ast 23 U/L 12-42 Egfr Non- 82.3 >60 Egfr 105.8 >60 39 Laboratory test 04/05/2013 [facility] C Reactive < 0.5 mg/dL Less than finding [address] Protein 0.[address] [place] [address] [phone] CBC Auto Diff 04/05/2013 [facility] White Blood 5.2 10^3/uL 4.8-10.[address] [place] [address] [phone] Red Blood Count 3.40 10^6/uL Low 4.0-5.4 Hemoglobin 11.7 g/dL Low 12.0-16.0 Hematocrit 34 % Low 35-47 Mean Corpuscular Volume 101 fL High 80-97 Mean Corpuscular Hemoglobin 34 pg High 27-31 Mean Corpuscular HGB Conc 34 g/dL 31-36 Red Cell Distribution Width 13 % 10.5-15 Platelet Count 266 10^3/uL 150-450 Mean Platelet Volume 8 um3 7.4-10.4 Abs Neutrophils 2.0 10^3/uL 1.5-7.7 Abs Lymphocytes 2.5 10^3/uL 1.0-4.8 Abs Monocytes 0.6 10^3/uL 0-0.8 Abs Eosinophils 0.1 10^3/uL 0-0.6 Abs Basophils 0 10^3/uL 0-0.2 Abs Nucleated RBC 0 10^3/uL Granulocyte % 39.0 % 38-83 Lymphocyte % 48.0 % High 25-47 Monocyte % 11.2 % High 1-9 Eosinophil % 1.4 % 0-6 Basophil % 0.4 % 0-2 Nucleated Red Blood Cells % 0.1 Laboratory test 04/05/2013 [facility] Erythrocyte Sed 24 mm/Hr 0-[address] [place] [address] [phone] CBC Auto Diff 01/26/2013 [facility] White Blood 6.2 4.8-10.[address] Count 10^3/[place] [address] [phone] Red Blood Count 3.46 10^6/uL Low 4.0-5.4 Hemoglobin 12.4 g/dL 12.0-16.0 Hematocrit 35 % 35-47 Mean Corpuscular Volume 102 fL High 80-97 40 Mean Corpuscular Hemoglobin 36 pg High 27-31 Mean Corpuscular HGB Conc 35 g/dL 31-36 Red Cell Distribution Width 13 % 10.5-15 Platelet Count 288 10^3/uL 150-450 Mean Platelet Volume 9 um3 7.4-10.4 Abs Neutrophils 3.4 10^3/uL 1.5-7.7 Abs Lymphocytes 2.2 10^3/uL 1.0-4.8 Abs Monocytes 0.5 10^3/uL 0-0.8 Abs Eosinophils 0.1 10^3/uL 0-0.6 Abs Basophils 0 10^3/uL 0-0.2 Abs Nucleated RBC 0 10^3/uL Granulocyte % 55.0 % 38-83 Lymphocyte % 34.8 % 25-47 Monocyte % 8.3 % 1-9 Eosinophil % 1.3 % 0-6 Basophil % 0.6 % 0-2 Nucleated Red Blood Cells % 0.1 Laboratory test 01/26/2013 [facility] Erythrocyte Sed 6 mm/Hr 0-[address] [place] [address] [phone] Comp Metabolic 01/26/2013 [facility] Sodium 138 mmol/L 133- [address] [place] [address] [phone] Potassium 4.2 mmol/L 3.5-5.0 Chloride 104 mmol/L 101-111 Co2 Carbon Dioxide 27.0 mmol/L 22-32 Anion Gap 7.0 mmol/L 2-11 Glucose 95 mg/dL 70-100 Blood Urea Nitrogen 9 mg/dL 6-24 Creatinine 0.80 mg/dL 0.50-1.40 BUN/Creatinine Ratio 11.3 8-20 Calcium 9.3 mg/dL 8.1-9.9 Total Protein 6.7 g/dL 6.2-8.1 Albumin 4.0 g/dL 3.2-5.2 Globulin 2.7 g/dL 2-4 Albumin/Globulin Ratio 1.5 1-3 Total Bilirubin 1.1 mg/dL 0.4-1.5 Alkaline Phosphatase 44 U/L 30-110 Alt 17 U/L 14-54 Ast 22 U/L 12-42 Egfr Non- 70.5 >60 Egfr 90.7 >60 41 Laboratory test 01/26/2013 [facility] C Reactive < 0.5 mg/dL Less than finding [address] Protein 0.5 [place] [address] [phone] Comp Metabolic 11/28/2012 [facility] Sodium 136 mmol/L 133- [address] [place] [address] [phone] Potassium 4.0 mmol/L 3.5-5.0 Chloride 103 mmol/L 101-111 Co2 Carbon Dioxide 28.0 mmol/L 22-32 Anion Gap 5.0 mmol/L 2-11 Glucose 88 mg/dL 70-100 Blood Urea Nitrogen 15 mg/dL 6-24 Creatinine 0.80 mg/dL 0.50-1.40 BUN/Creatinine Ratio 18.8 8-20 Calcium 9.1 mg/dL 8.1-9.9 Total Protein 6.6 g/dL 6.2-8.1 Albumin 3.8 g/dL 3.2-5.2 Globulin 2.8 g/dL 2-4 Albumin/Globulin Ratio 1.4 1-3 Total Bilirubin 1.0 mg/dL 0.4-1.5 Alkaline Phosphatase 53 U/L 30-110 Alt 19 U/L 14-54 Ast 26 U/L 12-42 Egfr Non- 70.5 >60 Egfr 90.7 >60 42 CBC Auto Diff 11/28/2012 [facility] White Blood 7.3 10^3/uL 4.8-10.[address] [place] [address] [phone] Red Blood Count 3.36 10^6/uL Low 4.0-5.4 Hemoglobin 11.7 g/dL Low 12.0-16.0 Hematocrit 34 % Low 35-47 Mean Corpuscular Volume 101 fL High 80-97 Mean Corpuscular Hemoglobin 35 pg High 27-31 Mean Corpuscular HGB Conc 35 g/dL 31-36 Red Cell Distribution Width 14 % 10.5-15 Platelet Count 248 10^3/uL 150-450 Mean Platelet Volume 9 um3 7.4-10.4 Abs Neutrophils 3.8 10^3/uL 1.5-7.7 Abs Lymphocytes 2.7 10^3/uL 1.0-4.8 Abs Monocytes 0.7 10^3/uL 0-0.8 Abs Eosinophils 0.1 10^3/uL 0-0.6 Abs Basophils 0 10^3/uL 0-0.2 Abs Nucleated RBC 0 10^3/uL Granulocyte % 51.6 % 38-83 Lymphocyte % 36.8 % 25-47 Monocyte % 10.1 % High 1-9 Eosinophil % 1.2 % 0-6 Basophil % 0.3 % 0-2 Nucleated Red Blood Cells % 0 Laboratory test 11/28/2012 [facility] C Reactive 0.9 mg/dL High Less than finding [address] Protein 0.5 [place] [address] [phone] Erythrocyte Sed Rate 20 mm/Hr 0-40 Comp Metabolic Panel 10/04/2012 [facility] Sodium 137 mmol/L 133-[address] [place], [place] [id number] [phone] Potassium 3.9 mmol/L 3.5-5.0 Chloride 100 mmol/L Low 101-111 Co2 Carbon Dioxide 31.0 mmol/L 22-32 Anion Gap 6.0 mmol/L 2-11 Glucose 114 mg/dL High 70-100 Blood Urea Nitrogen 10 mg/dL 6-24 Creatinine 0.80 mg/dL 0.50-1.40 BUN/Creatinine Ratio 12.5 8-20 Calcium 9.4 mg/dL 8.1-9.9 Total Protein 6.3 g/dL 6.2-8.1 Albumin 4.0 g/dL 3.2-5.2 Globulin 2.3 g/dL 2-4 Albumin/Globulin Ratio 1.7 1-3 Total Bilirubin 1.0 mg/dL 0.4-1.5 Alkaline Phosphatase 52 U/L 30-110 Alt 18 U/L 14-54 Ast 22 U/L 12-42 Egfr Non- 70.5 >60 Egfr 90.7 >60 43 Laboratory test 10/04/2012 [facility] C Reactive < 0.5 mg/dL Less than finding [address] Protein 0.[address] [place] [address] [phone] CBC With Manual 10/04/2012 [facility] White Blood 5.7 10^3/uL 4.8-10.[address] [place] [address] [phone] Red Blood Count 3.56 10^6/uL Low 4.0-5.4 Hemoglobin 12.7 g/dL 12.0-16.0 Hematocrit 36 % 35-47 Mean Corpuscular Volume 101 fL High 80-97 Mean Corpuscular Hemoglobin 36 pg High 27-31 Mean Corpuscular HGB Conc 35 g/dL 31-36 Red Cell Distribution Width 13 % 10.5-15 Platelet Count 256 10^3/uL 150-450 Mean Platelet Volume 9 um3 7.4-10.4 Abs Neutrophils 3.0 10^3/uL 1.5-7.7 Abs Lymphocytes 2.2 10^3/uL 1.0-4.8 Abs Monocytes 0.4 10^3/uL 0-0.8 Abs Eosinophils 0.1 10^3/uL 0-0.6 Abs Basophils 0 10^3/uL 0-0.2 Abs Nucleated RBC 0 10^3/uL Neutrophil % 53 % 38-83 Band % 1 % 0-8 Lymphocytes % 34 % 25-47 Monocytes % 8 % 0-13 Eosinophils % 2 % 0-6 Reactive Lymph % 2 % 0-6 Macrocytosis 1+ Laboratory test 10/04/2012 [facility] Erythrocyte Sed 20 mm/Hr 0-[address] [place] [address] [phone] Comp Metabolic 08/31/2012 [facility] Sodium 136 mmol/L 133- [address] [place] [address] [phone] Potassium 4.2 mmol/L 3.5-5.0 Chloride 103 mmol/L 101-111 Co2 Carbon Dioxide 28.0 mmol/L 22-32 Anion Gap 5.0 mmol/L 2-11 Glucose 103 mg/dL High 70-100 Blood Urea Nitrogen 9 mg/dL 6-24 Creatinine 0.70 mg/dL 0.50-1.40 BUN/Creatinine Ratio 12.9 8-20 Calcium 9.1 mg/dL 8.1-9.9 Total Protein 6.6 g/dL 6.2-8.1 Albumin 3.9 g/dL 3.2-5.2 Globulin 2.7 g/dL 2-4 Albumin/Globulin Ratio 1.4 1-3 Total Bilirubin 0.9 mg/dL 0.4-1.5 Alkaline Phosphatase 50 U/L 30-110 Alt 17 U/L 14-54 Ast 21 U/L 12-42 Egfr Non- 82.3 >60 Egfr 105.8 >60 44 Laboratory test 08/31/2012 [facility] C Reactive 0.7 mg/dL High Less than finding [address] Protein 0.5 [place] [address] [phone] CBC With Manual 08/31/2012 [facility] White Blood 4.3 Low 4.8- 10.[address] Count 10^3/[place] [address] [phone] Red Blood Count 3.43 10^6/uL Low 4.0-5.4 Hemoglobin 12.0 g/dL 12.0-16.0 Hematocrit 34 % Low 35-47 Mean Corpuscular Volume 100 fL High 80-97 Mean Corpuscular Hemoglobin 35 pg High 27-31 Mean Corpuscular HGB Conc 35 g/dL 31-36 Red Cell Distribution Width 13 % 10.5-15 Platelet Count 219 10^3/uL 150-450 Mean Platelet Volume 9 um3 7.4-10.4 Abs Neutrophils 1.7 10^3/uL 1.5-7.7 Abs Lymphocytes 1.9 10^3/uL 1.0-4.8 Abs Monocytes 0.6 10^3/uL 0-0.8 Abs Eosinophils 0.1 10^3/uL 0-0.6 Abs Basophils 0 10^3/uL 0-0.2 Abs Nucleated RBC 0 10^3/uL Neutrophil % 40 % 38-83 Lymphocytes % 50 % High 25-47 Monocytes % 9 % 0-13 Eosinophils % 1 % 0-6 RBC Morphology Normal Normal Laboratory test 08/31/2012 [facility] Pathologist Review (SEE NOTE) [address] [place] [address] [phone] Erythrocyte Sed Rate 25 mm/Hr 0-40 46 Comp Metabolic Panel 08/03/2012 [facility] Sodium 138 mmol/L 133-[address] [place] [address] [phone] Potassium 4.4 mmol/L 3.5-5.0 Chloride 101 mmol/L 101-111 Co2 Carbon Dioxide 28.0 mmol/L 22-32 Anion Gap 9.0 mmol/L 2-11 Glucose 97 mg/dL 70-100 Blood Urea Nitrogen 12 mg/dL 6-24 Creatinine 0.90 mg/dL 0.50-1.40 BUN/Creatinine Ratio 13.3 8-20 Calcium 9.3 mg/dL 8.1-9.9 Total Protein 6.1 g/dL Low 6.2-8.1 Albumin 4.0 g/dL 3.2-5.2 Globulin 2.1 g/dL 2-4 Albumin/Globulin Ratio 1.9 1-3 Total Bilirubin 0.7 mg/dL 0.4-1.5 Alkaline Phosphatase 58 U/L 30-110 Alt 19 U/L 14-54 Ast 22 U/L 12-42 Egfr Non- 61.5 >60 Egfr 79.2 >60 47 Laboratory test 08/03/2012 [facility] C Reactive 1.1 mg/dL High Less than finding [address] [place] [address] [phone] CBC With Manual 08/03/2012 [facility] White Blood 5.7 4.8- 10.[address] Count 10^3/[place] [address] [phone] Red Blood Count 3.49 10^6/uL Low 4.0-5.4 Hemoglobin 12.5 g/dL 12.0-16.0 Hematocrit 36 % 35-47 Mean Corpuscular Volume 102 fL High 80-97 Mean Corpuscular Hemoglobin 36 pg High 27-31 Mean Corpuscular HGB Conc 35 g/dL 31-36 Red Cell Distribution Width 13 % 10.5-15 Platelet Count 250 10^3/uL 150-450 Mean Platelet Volume 9 um3 7.4-10.4 Abs Neutrophils 2.8 10^3/uL 1.5-7.7 Abs Lymphocytes 2.0 10^3/uL 1.0-4.8 Abs Monocytes 0.8 10^3/uL 0-0.8 Abs Eosinophils 0.1 10^3/uL 0-0.6 Abs Basophils 0 10^3/uL 0-0.2 Abs Nucleated RBC 0.01 10^3/uL Neutrophil % 58 % 38-83 Band % 2 % 0-8 Lymphocytes % 31 % 25-47 Monocytes % 8 % 0-13 Eosinophils % 1 % 0-6 RBC Morphology Normal Normal Laboratory test 08/03/2012 [facility] Erythrocyte Sed 26 mm/Hr 0-[address] [place] [address] [phone] Laboratory test 04/19/2012 [facility] Erythrocyte Sed 22 mm/Hr 0-[address] [place] [address] [phone] CBC With Manual 04/19/2012 [facility] White Blood 6.3 4.8- 10.[address] Count 10^3/[place] [address] [phone] Red Blood Count 3.52 10^6/uL Low 4.0-5.4 Hemoglobin 12.3 g/dL 12.0-16.0 Hematocrit 36 % 35-47 Mean Corpuscular Volume 102 fL High 80-97 Mean Corpuscular Hemoglobin 35 pg High 27-31 Mean Corpuscular HGB Conc 34 g/dL 31-36 Red Cell Distribution Width 13 % 10.5-15 Platelet Count 261 10^3/uL 150-450 Mean Platelet Volume 9 um3 7.4-10.4 Abs Neutrophils 3.5 10^3/uL 1.5-7.7 Abs Lymphocytes 2.2 10^3/uL 1.0-4.8 Abs Monocytes 0.6 10^3/uL 0-0.8 Abs Eosinophils 0.1 10^3/uL 0-0.6 Abs Basophils 0 10^3/uL 0-0.2 Abs Nucleated RBC 0.01 10^3/uL Neutrophil % 60.0 % 38-83 Band % 6.0 % 0-8 Lymphocytes % 29.0 % 25-47 Monocytes % 5.0 % 0-13 Eosinophils % 0 % 0-6 Basophil % 0 % 0-2 Reactive Lymph % 0 % 0-6 Metamyelocytes % 0 % 0-2 Myelocytes % 0 % 0-1 Promyelocytes % 0 % Blast % 0 % Macrocytosis 1+ Hypochromasia 1+ Rouleaux 1+ Laboratory test 04/19/2012 [facility] C Reactive 0.6 mg/dL High Less than finding [address] Protein 0.[address] [place] [address] [phone] Liver Function 04/19/2012 [facility] Total Protein 6.6 g/dL 6.2-8.[address] [place] [address] [phone] Albumin 4.1 g/dL 3.2-5.2 Globulin 2.5 g/dL 2-4 Albumin/Globulin Ratio 1.6 1-3 Total Bilirubin 1.0 mg/dL 0.4-1.5 Direct Bilirubin 0.1 mg/dL 0.1-0.5 Indirect Bilirubin 0.9 mg/dL 0.3-1.0 Alkaline Phosphatase 64 U/L 30-110 Alt 22 U/L 14-54 Ast 24 U/L 12-42 Basic Metabolic Panel 04/19/2012 [facility] Sodium 134 mmol/L 133-[address] [place] [address] [phone] Potassium 4.6 mmol/L 3.5-5.0 Chloride 100 mmol/L Low 101-111 Co2 Carbon Dioxide 28.0 mmol/L 22-32 Anion Gap 6.0 mmol/L 2-11 Glucose 102 mg/dL High 70-100 Blood Urea Nitrogen 10 mg/dL 6-24 Creatinine 0.70 mg/dL 0.50-1.40 BUN/Creatinine Ratio 14.3 8-20 Calcium 9.2 mg/dL 8.1-9.9 Egfr Non- 82.5 >60 Egfr 106.1 >60 48 Laboratory test 01/27/2012 [facility] Erythrocyte Sed 20 MM/HR 0-[address] [place] [address] [phone] CBC Auto Diff 01/27/2012 [facility] White Blood 4.8 CUMM 4.8- 10.[address] [place] [address] [phone] Red Cell Count 3.52 CUMM Low 4.2-5.4 Hemoglobin 12.5 g/dL 12.0-16.0 Hematocrit 36 % 35-47 Mean Corpuscular Volume 102 um3 High 79-97 Mean Corpuscular Hemoglob 35 pg High 27-31 Mean Corpuscular HGB Cone 35 g/dL 32-36 Redcell Distribution WDTH 13 % 10.5-15 Platelet Count 251 CUMM 150-450 Mean Platelet Volume 8.7 um3 7.4-10.4 Gran % 47.7 % 38-83 Lymph % 40.8 % 20-45 Mononuclear % 9.3 % High 1-9 Eosinophil % 0.9 % 0-6 Basophil % 1.3 % 0-2 Abs Lymphs 1.9 1.0-4.8 Abs Mononuclear 0.4 0-0.8 Absolute Neutrophil Count 2.3 1.5-7.7 Abs Eosinophils 0 0-0.6 Abs Basophils 0.1 0-0.2 Laboratory test 01/27/2012 [facility] C Reactive < 0.5 mg/dL Less Than finding [address] Protein 0.[address] [place] [address] [phone] Liver Function 01/27/2012 [facility] Total Protein 6.3 GM/DL 6.2-8.[address] [place] [address] [phone] Albumin 4.1 GM/DL 3.2-5.2 Globulin 2.2 GM/DL 2-4 Albumin/Globulin Ratio 1.9 1-3 Bilirubin Total 1.5 mg/dL 0.4-1.5 49 Bilirubin Direct 0.3 mg/dL 0.1-0.5 Indirect Bilirubin 1.2 mg/dL High 0.3-1.0 50 Alkaline Phosphatase 59 U/L 30-110 Alt (SGPT) 22 U/L 14-54 Ast (Sgot) 27 U/L 12-42 Basic Metabolic Panel 01/27/2012 [facility] Sodium 135 mmol/L 135-[address] [place] [address] [phone] Potassium 4.9 mmol/L 3.5-5.0 Chloride 98 mmol/L Low 101-111 Co2 (Carbon Dioxide) 30.0 mmol/L 22-32 Anion Gap 7.0 mmol/L 2-11 51 Glucose 87 mg/dL 70-100 BUN 12 mg/dL 6-24 Creatinine 0.8 mg/dL 0.50-1.40 One Over Creatinine 1.25 BUN/Creatinine Ratio 15.0 8-20 Calcium 9.5 mg/dL 8.1-9.9 eGFR Non- 70.7 > 60 eGFR 90.9 > 60 52 Basic Metabolic Panel 11/20/2011 [facility] Sodium 138 mmol/L 135-[address] [place] [address] [phone] Potassium 4.4 mmol/L 3.5-5.0 Chloride 102 mmol/L 101-111 Co2 (Carbon Dioxide) 31.0 mmol/L 22-32 Anion Gap 5.0 mmol/L 2-11 53 Glucose 84 mg/dL 70-100 BUN 11 mg/dL 6-24 Creatinine 0.7 mg/dL 0.50-1.40 One Over Creatinine 1.42 BUN/Creatinine Ratio 15.7 8-20 Calcium 9.5 mg/dL 8.1-9.9 eGFR Non- 82.5 > 60 eGFR 106.1 > 60 54 Liver Function 11/20/2011 [facility] Total Protein 6.1 GM/DL Low 6.2-8.[address] [place] [address] [phone] Albumin 4.0 GM/DL 3.2-5.2 Globulin 2.1 GM/DL 2-4 Albumin/Globulin Ratio 1.9 1-3 Bilirubin Total 0.9 mg/dL 0.4-1.5 55 Bilirubin Direct 0.0 mg/dL Low 0.1-0.5 Indirect Bilirubin (SEE NOTE) mg/dL 0.3-1.0 56 Alkaline Phosphatase 53 U/L 30-110 Alt (SGPT) 20 U/L 14-54 Ast (Sgot) 24 U/L 12-42 Laboratory test 11/20/2011 [facility] C Reactive < 0.5 mg/dL Less Than finding [address] Protein 0.5 [place] [address] [phone] Erythrocyte Sed Rate 24 MM/HR 0-40 CBC Auto Diff 11/20/2011 [facility] White Blood 5.8 CUMM 4.8- 10.[address] [place] [address] [phone] Red Cell Count 3.35 CUMM Low 4.2-5.4 Hemoglobin 11.9 g/dL Low 12.0-16.0 Hematocrit 34 % Low 35-47 Mean Corpuscular Volume 102 um3 High 79-97 Mean Corpuscular Hemoglob 36 pg High 27-31 Mean Corpuscular HGB Cone 35 g/dL 32-36 Redcell Distribution WDTH 14 % 10.5-15 Platelet Count 245 CUMM 150-450 Mean Platelet Volume 8.4 um3 7.4-10.4 Gran % 50.6 % 38-83 Lymph % 37.7 % 20-45 Mononuclear % 10.0 % High 1-9 Eosinophil % 1.2 % 0-6 Basophil % 0.5 % 0-2 Abs Lymphs 2.2 1.0-4.8 Abs Mononuclear 0.6 0-0.8 Absolute Neutrophil Count 2.9 1.5-7.7 Abs Eosinophils 0.1 0-0.6 Abs Basophils 0 0-0.2 1 Because ethnic data is not always readily available, this report includes an eGFR for both -Americans and non- Americans. The National Kidney Disease Education Program (NKDEP) does not endorse the use of the MDRD equation for patients that are not between the ages of 18 and 70, are , have extremes of body size, muscle mass, or nutritional status, or are non- or non-. According to the [employer], irrespective of diagnosis, the stage of the disease is based on the level of kidney function: Stage Description GFR(mL/min/1.73 m(2)) 1 Kidney damage with normal or decreased GFR 90 2 Kidney damage with mild decrease in GFR 60-89 3 Moderate decrease in GFR 30-59 4 Severe decrease in GFR 15-29 5 Kidney failure <15 (or dialysis) 2 Desirable: <150 Borderline High: 150-199 High: 200-499 Very High: >500 3 Desirable: <200 Borderline High: 200-239 High: >239 4 Low: <40 Desirable: 40-60 High: >60 5 Desirable: <100 Near Optimal: 100-129 Borderline High: 130-159 High: 160-189 Very High: >189 6 Because ethnic data is not always readily available, this report includes an eGFR for both -Americans and non- Americans. The National Kidney Disease Education Program ([employer]) does not endorse the use of the MDRD equation for patients that are not between the ages of 18 and 70, are , have extremes of body size, muscle mass, or nutritional status, or are non- or non-. According to the National Kidney Foundation, irrespective of diagnosis, the stage of the disease is based on the level of kidney function: Stage Description GFR(mL/min/1.73 m(2)) 1 Kidney damage with normal or decreased GFR 90 2 Kidney damage with mild decrease in GFR 60-89 3 Moderate decrease in GFR 30-59 4 Severe decrease in GFR 15-29 5 Kidney failure <15 (or dialysis) 7 STANDING ORDER Q 8 WEEKS OR DIRECTED 8 Because ethnic data is not always readily available, this report includes an eGFR for both -Americans and non- Americans. The National Kidney Disease Education Program ([facility]DEP) does not endorse the use of the MDRD equation for patients that are not between the ages of 18 and 70, are , have extremes of body size, muscle mass, or nutritional status, or are non- or non-. According to the National Kidney Foundation, irrespective of diagnosis, the stage of the disease is based on the level of kidney function: Stage Description GFR(mL/min/1.73 m(2)) 1 Kidney damage with normal or decreased GFR 90 2 Kidney damage with mild decrease in GFR 60-89 3 Moderate decrease in GFR 30-59 4 Severe decrease in GFR 15-29 5 Kidney failure <15 (or dialysis) 9 Acute inflammation: >10.00 10 Desirable <150 Borderline high 150-199 High 200-499 Very High >500 11 Desirable <200 Borderline high 200-239 High >239 12 Low <40 Desirable: 40-60 High: >60 13 Desirable: <100 mg/dL Near Optimal: 100-129 mg/dL Borderline High: 130-159 mg/dL High: 160-189 mg/dL Very High: >189 mg/dL 14 Because ethnic data is not always readily available, this report includes an eGFR for both -Americans and non- Americans. The National Kidney Disease Education Program (NK[employer]) does not endorse the use of the MDRD equation for patients that are not between the ages of 18 and 70, are , have extremes of body size, muscle mass, or nutritional status, or are non- or non-. According to the National Kidney Foundation, irrespective of diagnosis, the stage of the disease is based on the level of kidney function: Stage Description GFR(mL/min/1.73 m(2)) 1 Kidney damage with normal or decreased GFR 90 2 Kidney damage with mild decrease in GFR 60-89 3 Moderate decrease in GFR 30-59 4 Severe decrease in GFR 15-29 5 Kidney failure <15 (or dialysis) 15 Acute inflammation: >10.00 16 Acute inflammation: >10.00 17 Therapeutic target for the treatment of diabetes Mellitus patients is <7% HBA1C, and in selective patients <6.0%.Please refer to [place] [employer] Diabetic care guidelines for further information. 18 Because ethnic data is not always readily available, this report includes an eGFR for both -Americans and non- Americans. The National Kidney Disease Education Program ([facility]DEP) does not endorse the use of the MDRD equation for patients that are not between the ages of 18 and 70, are , have extremes of body size, muscle mass, or nutritional status, or are non- or non-. According to the National Kidney Foundation, irrespective of diagnosis, the stage of the disease is based on the level of kidney function: Stage Description GFR(mL/min/1.73 m(2)) 1 Kidney damage with normal or decreased GFR 90 2 Kidney damage with mild decrease in GFR 60-89 3 Moderate decrease in GFR 30-59 4 Severe decrease in GFR 15-29 5 Kidney failure <15 (or dialysis) 19 Acute inflammation: >10.00 20 Because ethnic data is not always readily available, this report includes an eGFR for both -Americans and non- Americans. The National Kidney Disease Education Program (NKDEP) does not endorse the use of the MDRD equation for patients that are not between the ages of 18 and 70, are , have extremes of body size, muscle mass, or nutritional status, or are non- or non-. According to the National Kidney Foundation, irrespective of diagnosis, the stage of the disease is based on the level of kidney function: Stage Description GFR(mL/min/1.73 m(2)) 1 Kidney damage with normal or decreased GFR 90 2 Kidney damage with mild decrease in GFR 60-89 3 Moderate decrease in GFR 30-59 4 Severe decrease in GFR 15-29 5 Kidney failure <15 (or dialysis) 21 Acute inflammation: >10.00 22 standing order q 6 weeks 23 Because ethnic data is not always readily available, this report includes an eGFR for both -Americans and non- Americans. The National Kidney Disease Education Program (NKDEP) does not endorse the use of the MDRD equation for patients that are not between the ages of 18 and 70, are , have extremes of body size, muscle mass, or nutritional status, or are non- or non-. According to the National Kidney Foundation, irrespective of diagnosis, the stage of the disease is based on the level of kidney function: Stage Description GFR(mL/min/1.73 m(2)) 1 Kidney damage with normal or decreased GFR 90 2 Kidney damage with mild decrease in GFR 60-89 3 Moderate decrease in GFR 30-59 4 Severe decrease in GFR 15-29 5 Kidney failure <15 (or dialysis) 24 Because ethnic data is not always readily available, this report includes an eGFR for both -Americans and non- Americans. The National Kidney Disease Education Program (NKDEP) does not endorse the use of the MDRD equation for patients that are not between the ages of 18 and 70, are , have extremes of body size, muscle mass, or nutritional status, or are non- or non-. According to the National Kidney Foundation, irrespective of diagnosis, the stage of the disease is based on the level of kidney function: Stage Description GFR(mL/min/1.73 m(2)) 1 Kidney damage with normal or decreased GFR 90 2 Kidney damage with mild decrease in GFR 60-89 3 Moderate decrease in GFR 30-59 4 Severe decrease in GFR 15-29 5 Kidney failure <15 (or dialysis) 25 Acute inflammation: >10.00 26 Because ethnic data is not always readily available, this report includes an eGFR for both -Americans and non- Americans. The National Kidney Disease Education Program (NKDEP) does not endorse the use of the MDRD equation for patients that are not between the ages of 18 and 70, are , have extremes of body size, muscle mass, or nutritional status, or are non- or non-. According to the National Kidney Foundation, irrespective of diagnosis, the stage of the disease is based on the level of kidney function: Stage Description GFR(mL/min/1.73 m(2)) 1 Kidney damage with normal or decreased GFR 90 2 Kidney damage with mild decrease in GFR 60-89 3 Moderate decrease in GFR 30-59 4 Severe decrease in GFR 15-29 5 Kidney failure <15 (or dialysis) 27 PRN EXP: 04/12/15 28 Acute inflammation: >10.00 29 Interpretation: Borderline (1.0-1.5) -- REFERENCE VALUE -- <1.0 (Negative) Test Performed by: [place] [address] [employer]: Sanjay Velasquez III, M.D. 30 Loly Cedeno 31 Because ethnic data is not always readily available, this report includes an eGFR for both -Americans and non- Americans. The National Kidney Disease Education Program (NKDEP) does not endorse the use of the MDRD equation for patients that are not between the ages of 18 and 70, are , have extremes of body size, muscle mass, or nutritional status, or are non- or non-. According to the National Kidney Foundation, irrespective of diagnosis, the stage of the disease is based on the level of kidney function: Stage Description GFR(mL/min/1.73 m(2)) 1 Kidney damage with normal or decreased GFR 90 2 Kidney damage with mild decrease in GFR 60-89 3 Moderate decrease in GFR 30-59 4 Severe decrease in GFR 15-29 5 Kidney failure <15 (or dialysis) 32 Acute inflammation: >10.00 33 Because ethnic data is not always readily available, this report includes an eGFR for both -Americans and non- Americans. The National Kidney Disease Education Program (NKDEP) does not endorse the use of the MDRD equation for patients that are not between the ages of 18 and 70, are , have extremes of body size, muscle mass, or nutritional status, or are non- or non-. According to the National Kidney Foundation, irrespective of diagnosis, the stage of the disease is based on the level of kidney function: Stage Description GFR(mL/min/1.73 m(2)) 1 Kidney damage with normal or decreased GFR 90 2 Kidney damage with mild decrease in GFR 60-89 3 Moderate decrease in GFR 30-59 4 Severe decrease in GFR 15-29 5 Kidney failure <15 (or dialysis) 34 Acute inflammation: >10.00 35 Because ethnic data is not always readily available, this report includes an eGFR for both -Americans and non- Americans. The National Kidney Disease Education Program ([facility]) does not endorse the use of the MDRD equation for patients that are not between the ages of 18 and 70, are , have extremes of body size, muscle mass, or nutritional status, or are non- or non-. According to the National Kidney Foundation, irrespective of diagnosis, the stage of the disease is based on the level of kidney function: Stage Description GFR(mL/min/1.73 m(2)) 1 Kidney damage with normal or decreased GFR 90 2 Kidney damage with mild decrease in GFR 60-89 3 Moderate decrease in GFR 30-59 4 Severe decrease in GFR 15-29 5 Kidney failure <15 (or dialysis) 36 Acute inflammation: >10.00 37 Because ethnic data is not always readily available, this report includes an eGFR for both -Americans and non- Americans. The National Kidney Disease Education Program (NKDEP) does not endorse the use of the MDRD equation for patients that are not between the ages of 18 and 70, are , have extremes of body size, muscle mass, or nutritional status, or are non- or non-. According to the National Kidney Foundation, irrespective of diagnosis, the stage of the disease is based on the level of kidney function: Stage Description GFR(mL/min/1.73 m(2)) 1 Kidney damage with normal or decreased GFR 90 2 Kidney damage with mild decrease in GFR 60-89 3 Moderate decrease in GFR 30-59 4 Severe decrease in GFR 15-29 5 Kidney failure <15 (or dialysis) 38 Acute inflammation: >10.00 39 Because ethnic data is not always readily available, this report includes an eGFR for both -Americans and non- Americans. The National Kidney Disease Education Program (NKDEP) does not endorse the use of the MDRD equation for patients that are not between the ages of 18 and 70, are , have extremes of body size, muscle mass, or nutritional status, or are non- or non-. According to the National Kidney Foundation, irrespective of diagnosis, the stage of the disease is based on the level of kidney function: Stage Description GFR(mL/min/1.73 m(2)) 1 Kidney damage with normal or decreased GFR 90 2 Kidney damage with mild decrease in GFR 60-89 3 Moderate decrease in GFR 30-59 4 Severe decrease in GFR 15-29 5 Kidney failure <15 (or dialysis) 40 @Consistent with previous results 41 Because ethnic data is not always readily available, this report includes an eGFR for both -Americans and non- Americans. The National Kidney Disease Education Program (NKDEP) does not endorse the use of the MDRD equation for patients that are not between the ages of 18 and 70, are , have extremes of body size, muscle mass, or nutritional status, or are non- or non-. According to the National Kidney Foundation, irrespective of diagnosis, the stage of the disease is based on the level of kidney function: Stage Description GFR(mL/min/1.73 m(2)) 1 Kidney damage with normal or decreased GFR 90 2 Kidney damage with mild decrease in GFR 60-89 3 Moderate decrease in GFR 30-59 4 Severe decrease in GFR 15-29 5 Kidney failure <15 (or dialysis) 42 Because ethnic data is not always readily available, this report includes an eGFR for both -Americans and non- Americans. The National Kidney Disease Education Program (NKDEP) does not endorse the use of the MDRD equation for patients that are not between the ages of 18 and 70, are , have extremes of body size, muscle mass, or nutritional status, or are non- or non-. According to the National Kidney Foundation, irrespective of diagnosis, the stage of the disease is based on the level of kidney function: Stage Description GFR(mL/min/1.73 m(2)) 1 Kidney damage with normal or decreased GFR 90 2 Kidney damage with mild decrease in GFR 60-89 3 Moderate decrease in GFR 30-59 4 Severe decrease in GFR 15-29 5 Kidney failure <15 (or dialysis) 43 Because ethnic data is not always readily available, this report includes an eGFR for both -Americans and non- Americans. The National Kidney Disease Education Program (NKDEP) does not endorse the use of the MDRD equation for patients that are not between the ages of 18 and 70, are , have extremes of body size, muscle mass, or nutritional status, or are non- or non-. According to the National Kidney Foundation, irrespective of diagnosis, the stage of the disease is based on the level of kidney function: Stage Description GFR(mL/min/1.73 m(2)) 1 Kidney damage with normal or decreased GFR 90 2 Kidney damage with mild decrease in GFR 60-89 3 Moderate decrease in GFR 30-59 4 Severe decrease in GFR 15-29 5 Kidney failure <15 (or dialysis) 44 Because ethnic data is not always readily available, this report includes an eGFR for both -Americans and non- Americans. The National Kidney Disease Education Program (NKDEP) does not endorse the use of the MDRD equation for patients that are not between the ages of 18 and 70, are , have extremes of body size, muscle mass, or nutritional status, or are non- or non-. According to the National Kidney Foundation, irrespective of diagnosis, the stage of the disease is based on the level of kidney function: Stage Description GFR(mL/min/1.73 m(2)) 1 Kidney damage with normal or decreased GFR 90 2 Kidney damage with mild decrease in GFR 60-89 3 Moderate decrease in GFR 30-59 4 Severe decrease in GFR 15-29 5 Kidney failure <15 (or dialysis) 45 CBC and smear reviewed. Inverted PMN/lymph ratio noted. No blasts seen. REVIEWED BY EDUAR ROE MD 46 @08/31/12 1655: Path Review added. RFLXG=PATH. 47 Because ethnic data is not always readily available, this report includes an eGFR for both -Americans and non- Americans. The National Kidney Disease Education Program (NKDEP) does not endorse the use of the MDRD equation for patients that are not between the ages of 18 and 70, are , have extremes of body size, muscle mass, or nutritional status, or are non- or non-. According to the National Kidney Foundation, irrespective of diagnosis, the stage of the disease is based on the level of kidney function: Stage Description GFR(mL/min/1.73 m(2)) 1 Kidney damage with normal or decreased GFR 90 2 Kidney damage with mild decrease in GFR 60-89 3 Moderate decrease in GFR 30-59 4 Severe decrease in GFR 15-29 5 Kidney failure <15 (or dialysis) 48 Because ethnic data is not always readily available, this report includes an eGFR for both -Americans and non- Americans. The National Kidney Disease Education Program (NKDEP) does not endorse the use of the MDRD equation for patients that are not between the ages of 18 and 70, are , have extremes of body size, muscle mass, or nutritional status, or are non- or non-. According to the National Kidney Foundation, irrespective of diagnosis, the stage of the disease is based on the level of kidney function: Stage Description GFR(mL/min/1.73 m(2)) 1 Kidney damage with normal or decreased GFR 90 2 Kidney damage with mild decrease in GFR 60-89 3 Moderate decrease in GFR 30-59 4 Severe decrease in GFR 15-29 5 Kidney failure <15 (or dialysis) 49 A metabolite of Naproxen, O-desmethylnaproxen, has been shown to interfere with the Jendrassik-Phillip method for measuring total bilirubin. Samples from patients who have taken Naproxen have shown spurious elevation in total bilirubin levels. 50 Please note updated reference range, effective 11/21/09 51 Anion gap measurement may be of limited value in the presence of any alkalosis, especially in a combined acid base disorder. . 52 Because ethnic data is not always readily available, this report includes an eGFR for both -Americans and non- Americans. The National Kidney Disease Education Program (NKDEP) does not endorse the use of the MDRD equation for patients that are not between the ages of 18 and 70, are , have extremes of body size, muscle mass, or nutritional status, or are non- or non-. According to the National Kidney Foundation, irrespective of diagnosis, the stage of the disease is based on the level of kidney function: Stage Description GFR(mL/min/1.73 m(2)) 1 Kidney damage with normal or decreased GFR 90 2 Kidney damage with mild decrease in GFR 60-89 3 Moderate decrease in GFR 30-59 4 Severe decrease in GFR 15-29 5 Kidney failure <15 (or dialysis) 53 Anion gap measurement may be of limited value in the presence of any alkalosis, especially in a combined acid base disorder. . 54 Because ethnic data is not always readily available, this report includes an eGFR for both -Americans and non- Americans. The National Kidney Disease Education Program (NKDEP) does not endorse the use of the MDRD equation for patients that are not between the ages of 18 and 70, are , have extremes of body size, muscle mass, or nutritional status, or are non- or non-. According to the National Kidney Foundation, irrespective of diagnosis, the stage of the disease is based on the level of kidney function: Stage Description GFR(mL/min/1.73 m(2)) 1 Kidney damage with normal or decreased GFR 90 2 Kidney damage with mild decrease in GFR 60-89 3 Moderate decrease in GFR 30-59 4 Severe decrease in GFR 15-29 5 Kidney failure <15 (or dialysis) 55 A metabolite of Naproxen, O-desmethylnaproxen, has been shown to interfere with the Jendrassik-Phillip method for measuring total bilirubin. Samples from patients who have taken Naproxen have shown spurious elevation in total bilirubin levels. 56 UNABLE TO CALCULATE IND.BILI D.BILI IS <0.1 Please note updated reference range, effective 11/21/09 Procedures Date Code Description Status 01/20/2016 [id number] Bone Mineral Density Test Completed 01/20/2016 [id number] Mammogram Completed 01/04/2015 [id number] Mammogram Completed Encounters Type Date Location Provider Dx Diagnosis Office Visit 01/21/2018 Rheumatology Rosibel Sarabia, M06.09 Rheumatoid 9:30a [facility] GAS DISTRIBUTION AND EMERGENCY CLERK arthritis w/o rheumatoid factor, multiple sites M85.9 Disorder of bone density and structure, unspecified E78.00 Pure hypercholesterolemia, unspecified Z79.899 Other mcfp (current) drug therapy Z23 Encounter for immunization K21.9 Gastro-esophageal reflux disease without esophagitis Office Visit 09/24/2017 11:00a Rheumatology Zsofia M06.09 [facility] [employer] [place], G[employer] DISTRIBUTION AND EMERGENCY CLERK arthritis w/o rheumatoid factor, multiple sites M85.9 Disorder of bone density and structure, unspecified Z79.899 Other extermination inspector (current) drug therapy Z23 Encounter for immunization I10 Essential (primary) hypertension Z13.220 Encounter for screening for lipoid disorders M85.80 Oth disrd of bone density and structure, unspecified site Office Visit 02/09/2017 10:00a Rheumatology Zsofia M06.09 [facility] Natalie Sarabia, GAS DISTRIBUTION AND EMERGENCY CLERK arthritis w/o rheumatoid factor, multiple sites M85.9 Disorder of bone density and structure, unspecified Z79.899 Other extermination inspector (current) drug therapy Z23 Encounter for immunization M85.80 Oth disrd of bone density and structure, unspecified site Office Visit 10/13/2016 10:30a Rheumatology Zsofia M06.09 [facility] [employer] FRANSICO SarabiaP arthritis w/o rheumatoid factor, multiple sites M85.9 Disorder of bone density and structure, unspecified Z79.899 Other extermination inspector (current) drug therapy Z13.1 Encounter for screening for diabetes mellitus Z23 Encounter for immunization M85.80 Oth disrd of bone density and structure, unspecified site Office Visit 01/21/2016 1:00p Rheumatology Zsofia M06.09 [facility] Natalie Sarabia, GAS DISTRIBUTION AND EMERGENCY CLERK arthritis w/o rheumatoid factor, multiple sites M35.00 Sicca syndrome, unspecified M85.9 Disorder of bone density and structure, unspecified Z79.899 Other extermination inspector (current) drug therapy K59.09 Other constipation Office Visit 09/27/2015 9:00a Rheumatology Zsofia M06.09 [facility] [place], GAS DISTRIBUTION AND EMERGENCY CLERK arthritis w/o rheumatoid factor, multiple sites M35.00 Sicca syndrome, unspecified Z79.899 Other extermination inspector (current) drug therapy Z13.820 Encounter for screening for osteoporosis Office Visit 02/05/2015 8:30a Rheumatology Rosibel M06.09 [facility] [place], GAS DISTRIBUTION AND EMERGENCY CLERK arthritis w/o rheumatoid factor, multiple sites L98.9 Disorder of the skin and subcutaneous tissue, unspecified Z79.899 Other mcfp (current) drug therapy Z23 Encounter for immunization Office Visit 11/27/2014 9:30a Rheumatology Rosibel Sarabia 714.0 [facility] GAS DISTRIBUTION AND EMERGENCY CLERK Arthritis 710.2 Sicca Syndrome 709.9 Skin & Subcutaneous Tissue Disorders Unspec V58.69 Medications Diversional Therapist'S Assistant (Current) Use Encounter Office Visit 08/27/2014 2:00p Rheumatology Rosibel Sarabia 714.0 [facility] GAS DISTRIBUTION AND EMERGENCY CLERK Arthritis 709.9 Skin & Subcutaneous Tissue Disorders Unspec V65.9 Consultation Unspec Reason V58.69 Medications Mcfp (Current) Use Encounter V65.49 Counseling Other Spec Office Visit 02/08/2014 11:30a Rheumatology Rosibel Sarabia 714.0 [facility] GAS DISTRI[employer]ION AND EMERGENCY CLERK Arthritis 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 V58.69 Medications Mcfp (Current) Use Encounter Office Visit 12/06/2013 2:30p Rheumatology Rosibel Sarabia 714.0 [facility] GAS DISTRIBUTION AND EMERGENCY CLERK Arthritis 709.9 Skin & Subcutaneous Tissue Disorders Unspec 721.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 V58.69 Medications Mcfp (Current) Use Encounter Office Visit 09/13/2013 2:30p Rheumatology Rosibel Sarabia 714.0 [facility] GAS DISTRIBUTION AND EMERGENCY CLERK Arthritis 721.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 V58.69 Medications Mcfp (Current) Use Encounter Office Visit 04/21/2013 8:30a Rheumatology Rosibel Sarabia 714.0 [facility] GAS DISTRIBUTION AND EMERGENCY CLERK Arthritis 710.2 Sicca Syndrome 443.0 Raynauds Syndrome V58.69 Medications Mcfp (Current) Use Encounter Office Visit 03/03/2013 1:00p Rheumatology Rayray Flanagan4.0 [facility] GAS DISTRIBUTION AND EMERGENCY CLERK Arthritis 443.0 Raynauds Syndrome 710.2 Sicca Syndrome V58.69 Medications Mcfp (Current) Use Encounter Office Visit 11/17/2012 2:20p Rheumatology Rayray Flanagan4.0 [facility] GAS DISTRIBUTION AND EMERGENCY CLERK Arthritis 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 Arthritis 721.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 V58.69 Medications Mcfp (Current) Use Encounter Office Visit 01/28/2012 9:00a Rheumatology Van Mccarthy, 714.0 [facility] [employer] M.D. Arthritis V58.69 Medications Mcfp (Current) Use Encounter 721.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 Office Visit 10/27/2011 Rheumatology Van Endo, V58.69 Medications Long 9:00a [facility] [employer] M.D. Term (Current) Use Encounter 714.0 Rheumatoid Arthritis 715.94 Osteoarthrosis Unspec Genlzd Or Localized Hand Office Visit 07/14/2011 9:00a Rheumatology Van Endo, 714.0 [facility] [employer] M.D. Arthritis V58.69 Medications Diversional Therapist'S Assistant (Current) Use Encounter 721.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 Office Visit 03/05/2011 8:40a Rheumatology Van Mccarthy, 714.0 [facility] [employer] M.D. Arthritis V58.69 Medications Diversional Therapist'S Assistant (Current) Use Encounter 443.0 Raynauds Syndrome Office Visit 12/15/2010 9:20a Rheumatology Van Endo, 714.0 [facility] [employer] M.D. Arthritis V58.69 Medications Mcfp (Current) Use Encounter Office Visit 10/07/2010 9:20a Rheumatology Van Mccarthy, 714.0 [facility] [employer] M.D. Arthritis V58.69 Medications Diversional Therapist'S Assistant (Current) Use Encounter Office Visit 07/15/2010 2:40p Rheumatology Van Mccarthy, 714.0 [facility] [employer] M.D. Arthritis V58.69 Medications Mcfp (Current) Use Encounter Plan of Treatment Future Appointment(s):01/24/2019 10:30 am - MADDIE Flanagan at [facility]09/20/2018 - Rosibel Cornell, FNPM06.09 Rheumatoid arthritis without rheumatoid factor, multiple sitNew Medication:Methotrexate 2.5 mg - 3 tbs by mouth every weekComments:Your arthritis seems to be clinically well controlled at this time.Your latest laboratory tests indicate no detectable impairment of kidney and liver functions.Please, continue on MTX to 3 tabs and continue with SimponiPlease call the office if you develop any sign or symptoms of infection or acute change in your health.Follow up:4 month Labs ASAPM85.9 Disorder of bone density and structure, ephmnjmsmtvA37.899 Other mcfp ( current) drug therapyNew Medication:Methotrexate 2.5 mg - 3 tbs by mouth every weekD64.9 Anemia, [id number] CoughComments:I suspect hat the morning cough is caused by irration of your esophagus by stomach acid
[2018-10-17 11:25] VITALS: BP 140/61
--- NOTE | 2018-10-17 11:58 | UC ---
Skin Complaint HPI - HPI Summary HPI Summary: 78 yo female presents with skin lesion to left marroquin. She tells me that she has had a raised pink lesion on the front of her marroquin for a few months. Every so often it will increase in size and she will pick at it or try to pop it and it will bleed. She lives in [place] and states she has had multiple suspicious skin lesions removed in the past. She is schedule to see dermatology in a few weeks for this, but is concerned that it was an infection or a tick bite. Denies fevers or injury to the area. - History of Current Complaint Chief Complaint: UCSkin Time Seen by Provider: 10/17/18 11:58 Stated Complaint: SKIN ISSUE Hx Obtained From: Patient Onset/Duration: Gradual Onset Onset Severity: Mild Current Severity: Mild Pain Intensity: 2 Pain Scale Used: 0-10 Numeric - Allergy/Home Medications Allergies/Adverse Reactions: Allergies Allergy/AdvReac Type Severity Reaction Status Date / Time No Known Allergies Allergy Verified 10/17/18 11:21 Home Medications: Home Medications Golimumab [Simponi] 50 mg SC MONTHLY 10/17/18 [History Confirmed 10/17/18] Methotrexate 3 tab PO WEEKLY 10/17/18 [History Confirmed 10/17/18] Olmesartan (NF) [Benicar (NF)] 1 tab PO DAILY 10/17/18 [History Confirmed ] PMH/Surg Hx/FS Hx/Imm Hx - Additional Past Medical History Additional PMH: Rheumatoid arthritis Cardiovascular History: Hypertension - Surgical History Surgical History: Yes Surgery Procedure, Year, and Place: bunions removed - Family History Known Family History: Positive: None - Social History Occupation: Retired Lives: With Family Alcohol Use: Daily Substance Use Type: None Smoking Status (MU): Never Smoked Tobacco Review of Systems All Other Systems Reviewed And Are Negative: Yes Constitutional: Positive: Negative Skin: Positive: Other - Lesion left marroquin Respiratory: Positive: Negative Cardiovascular: Positive: Negative Neurovascular: Positive: Negative Neurological: Positive: Negative Psychological: Positive: Negative Physical Exam - Summary Physical Exam Summary: GENERAL: NAD. WDWN. No pain distress. SKIN: LEFT MARROQUIN: 4mm pink color slightly raised lesion with central ulceration and scab. Mildly TTP. No warmth, streaking, edema, or drainage. NECK: Supple. Nontender. No lymphadenopathy. CHEST: No accessory muscle use. Breathing comfortably and in no distress. CV: Pulses intact. Cap refill <2seconds NEURO: Alert. PSYCH: Age appropriate behavior. Triage Information Reviewed: Yes Vital Signs: Initial Vital Signs Temp 95.6 F 10/17/18 11:18 Pulse 55 10/17/18 11:18 Resp 18 10/17/18 11:18 BP 140/61 10/17/18 11:18 Pulse Ox 100 10/17/18 11:18 Vital Signs Reviewed: Yes Course/Dx - Course Course Of Treatment: Lesion appears suspicious for malignancy - possible SCC. Discussed with pt that this is not an infection or a bug bite and recommended she keep her f/u with dermatology for further eval/treatment of this. - Diagnoses Provider Diagnosis: Pigmented skin lesion suspicious for malignant neoplasm Discharge - Sign-Out/Discharge Documenting (check all that apply): Patient Departure All imaging exams completed and their final reports reviewed: No Studies - Discharge Plan Condition: Stable Disposition: HOME Patient Education Materials: Excision of Skin Lesion (DC), Skin Biopsy (DC) Referrals: Stanislav Maldonado MD [Primary Care Provider] - Additional Instructions: If you develop a fever, shortness of breath, chest pain, new or worsening symptoms - please call your PCP or go to the ED immediately. Your blood pressure was slightly elevated at todays visit. Please see your primary provider within 4 weeks for recheck and re-evaluation. 1) The site on your leg is not an infection or bug bite, but does appear to be a skin lesion that is suspicious. I recommend that you follow up with dermatology within 1 month for testing/removal of this. - Billing Disposition and Condition Condition: STABLE Disposition: Home
== END 2018-10-17 12:19 | disposition home or self-care (01) ==
LOC: UCEAST 10:53
DX: L98.8 Other specified disorders of the skin and subcutaneous tissue (principal); I10 Essential (primary) hypertension
CPT/HCPCS: 99211; G0463

== ENCOUNTER 2019-01-30 13:37 | Emergency (ER) | payer MEDICARE, BC ==
--- NOTE | 2019-01-30 13:42 | UC ---
Respiratory Complaint HPI - HPI Summary HPI Summary: 78 yo female presents with cold symptoms. She tells me that 5 days ago she was on a cruise with her and he was getting over a cold when she developed sinus congestion, runny nose, post nasal drip, sore throat, and a dry cough. She had an old rx for amoxicillin at home and thus took this BID for 5 days and has had no change in her symptoms. She denies fever, chills, SOB, chest pain. She does not smoke. - History of Current Complaint Chief Complaint: UCRespiratory Stated Complaint: COUGH Time Seen by Provider: 01/30/19 13:41 Hx Obtained From: Patient Onset/Duration: Gradual Onset Severity Initially: Mild Severity Currently: Mild Pain Intensity: 3 Pain Scale Used: 0-10 Numeric Character: Cough: Nonproductive - Allergies/Home Medications Allergies/Adverse Reactions: Allergies Allergy/AdvReac Type Severity Reaction Status Date / Time No Known Allergies Allergy Verified 01/30/19 13:43 Home Medications: Home Medications Amoxicillin PO (*) [Amoxicillin 875 MG (*)] 875 mg PO DAILY 01/30/19 [History Confirmed 01/30/19] PMH/Surg Hx/FS Hx/Imm Hx - Additional Past Medical History Additional PMH: Rheumatoid arthritis Cardiovascular History: Hypertension - Surgical History Surgical History: Yes Surgery Procedure, Year, and Place: bunions removed - Family History Known Family History: Positive: None - Social History Lives: With Family Alcohol Use: Daily Substance Use Type: None Smoking Status (MU): Never Smoked Tobacco Review of Systems All Other Systems Reviewed And Are Negative: No Constitutional: Positive: Negative Skin: Positive: Negative Eyes: Positive: Negative ENT: Positive: Nasal Discharge, Sinus Congestion, Sinus Pain/Tenderness Respiratory: Positive: Cough Cardiovascular: Positive: Negative Gastrointestinal: Positive: Negative Neurological: Positive: Negative Psychological: Positive: Negative Physical Exam - Summary Physical Exam Summary: GENERAL: NAD. WDWN. No pain distress. SKIN: No rashes, sores, lesions, or open wounds. HEENT: Head: AT/NC Eyes: EOM intact. Conjunctiva clear without inflammation or discharge. Ears: Hearing grossly normal. TMs intact, no bulging, erythema, or edema. Nose: Nasal mucosa pink and moist. NTTP maxillary and frontal sinus. Throat: Posterior oropharynx without exudates, erythema, or tonsillar enlargement. Uvula midline. NECK: Supple. Nontender. No lymphadenopathy. CHEST: CTAB. No r/r/w. No accessory muscle use. Breathing comfortably and in no distress. CV: RRR. Without m/r/g. Pulses intact. Cap refill <2seconds NEURO: Alert. PSYCH: Age appropriate behavior. Triage Information Reviewed: Yes Vital Signs: Vital Signs: Temp Pulse Resp BP Pulse Ox 98.9 F 79 18 143/58 98 01/30/19 13:40 01/30/19 13:40 01/30/19 13:40 01/30/19 13:40 01/30/19 13:40 Vital Signs Reviewed: Yes Diagnostics - Radiology CXR Radiology Interpretation Completed By: Radiologist Summary of Radiographic Findings: IMPRESSION: NO ACTIVE CARDIOPULMONARY DISEASE. Respiratory Course/Dx - Course Course Of Treatment: CXR negative. Suspect viral illness. Discussed with pt and advised to continue OTC management. F/u with PCP if symptoms do not improve - Differential Dx/Diagnosis Provider Diagnosis: Cough Discharge ED - Sign-Out/Discharge Documenting (check all that apply): Patient Departure All imaging exams completed and their final reports reviewed: Yes - Discharge Plan Condition: Stable Disposition: HOME Patient Education Materials: Viral Syndrome (ED) Referrals: Stanislav Maldonado MD [Primary Care Provider] - Additional Instructions: Viral infections do not respond to antibiotics and are limited to the treatment of symptoms. Viral infections typically run their course in 7-10 days. Be sure to drink plenty of fluids to avoid dehydration especially if you are running any fever. May take over the counter acetaminophen (Tylenol) or ibuprofen (Advil, Motrin) according to directions as needed for and pain or fever. Follow up with your primary care provider in 3-5 days if symptoms persist. Seek immediate medical attention in the emergency room if you have a persistent fever greater than 100.5 F despite taking acetaminophen or ibuprofen - Billing Disposition and Condition Condition: STABLE Disposition: Home
--- OUTSIDE RECORDS SUMMARY | 2019-01-30 13:42 | XMS REPORT | Continuity of Care Document ---
:1940 External Reference #:[id number] Author Name MADDIE Flanagan (transmitted by agent of provider Nini Ocampo) Address [address] [place] [address] Care Team Providers Name Role Phone Stanislav Maldonado MD - Family Medicine Care Team Information Jack Spinner [phone] Problems Active Problems Provider Date Rheumatoid arthritis Van Mccarthy M.D. Onset: 01/28/2012 Medications Can Sorter (Current) Use Encounter Van Mccarthy M.D. Onset: Lumbosacral spondylosis without myelopathy Van Mccarthy M.D. Onset: 2011 Taking medication MADDIE Flanagan Onset: 08/24/2014 Social History Type Date Description Comments Sex Unknown ETOH Use Occasionally consumes alcohol Tobacco Use Start: Unknown End: Unknown Patient is a former smoker Smoking Status Reviewed: 01/10/19 Patient is a former smoker Allergies, Adverse Reactions, Alerts Description No Known Drug Allergies Medications Active Medications SIG Qnty Indications Ordering Provider Date Simponi inject 50 mg .500ml MADDIE Flanagan 11/09/2018 50mg/0.5ML Soln under the skin Prefill Syringe every month Shingrix 2 doses 4 month 2units Z23 MADDIE Flanagan 09/24/2017 50mcg apart Suspension Rec Folic Acid take one tablet 90tabs Z79.899 MADDIE Flanagan 07/04/2010 1mg Tablets by mouth every day Multi-Vitamin 1 po qd Unknown Tablets Olmesartan Medoxomil 1 tablet by Unknown mouth daily 20mg Tablets History Medications Methotrexate 3 tbs by mouth 36tabs M06.09 Rosibel Sarabia 09/20/2018 - 2.5mg every week INS[employer] SALES LEAD 10/20/2018 Tablets Z79.899 Immunizations CPT Code Status Date Vaccine Reaction Lot # [id number] Given 01/21/2018 Influenza Virus Vaccine, no immediate reaction [id number] Quadrivalent, Split, noted Preservative Free 24657 Given 02/09/2017 Influenza Virus Vaccine, no immediate reaction [id number] Quadrivalent, Split, noted Preservative Free 06200 Given 10/13/2016 Pneumonia Vaccine No initial reaction [id number] noted 19103 Given 02/05/2015 Influenza Virus Vaccine, [id number] Quadrivalent, Split, Preservative Free 32777 Given 01/02/2015 Pneumococcal Conjugate Vaccine 13 Valent For Intramuscular Use Vital Signs Date Vital Result Comment 01/10/2019 11:05am Height 61.5 inches 5'1.50" Weight 135.25 lb Heart Rate 75 /min BP Systolic 123 mmHg BP Diastolic 63 mmHg Body Temperature 97.7 F O2 % BldC Oximetry 100 % BMI (Body Mass Index) 25.1 kg/m2 09/20/2018 2:36pm Height 61.5 inches 5'1.50" Weight 135.25 lb Heart Rate 71 /min BP Systolic Sitting 124 mmHg BP Diastolic Sitting 72 mmHg O2 % BldC Oximetry 94 % BMI (Body Mass Index) 25.1 kg/m2 Results Test Date Facility Test Result H/L Range Note CBC Auto 12/20/2018 [facility] White Blood 6.9 10^3/uL Normal 3.5-10.[address] [place] [address] [phone] Red Blood Count 3.35 10^6/uL Low 3.70-4.87 Hemoglobin 11.6 g/dL Low 12.0-16.0 Hematocrit 33 % Low 35-47 Mean Corpuscular Volume 100 fL High 80-97 Mean Corpuscular Hemoglobin 35 pg High 27-31 Mean Corpuscular HGB Conc 35 g/dL Normal 31-36 Red Cell Distribution Width 13 % Normal 10-15 Platelet Count 264 10^3/uL Normal 150-450 Mean Platelet Volume 8.3 fL Normal 7.4-10.4 Abs Neutrophils 3.9 10^3/uL Normal 1.5-7.7 Abs Lymphocytes 2.3 10^3/uL Normal 1.0-4.8 Abs Monocytes 0.7 10^3/uL Normal 0-0.8 Abs Eosinophils 0.1 10^3/uL Normal 0-0.6 Abs Basophils 0.0 10^3/uL Normal 0-0.2 Abs Nucleated RBC 0.0 10^3/uL Granulocyte % 56.1 % Lymphocyte % 32.6 % Monocyte % 9.8 % Eosinophil % 1.0 % Basophil % 0.5 % Nucleated Red Blood Cells % 0.0 Comp Metabolic 12/20/2018 [facility] Sodium 135 mmol/L Normal 135-145 Panel [address] [place] [address] [phone] Potassium 4.3 mmol/L Normal 3.5-5.0 Chloride 102 mmol/L Normal 101-111 Co2 Carbon Dioxide 30 mmol/L Normal 22-32 Anion Gap 3 mmol/L Normal 2-11 Glucose 122 mg/dL High 70-100 Blood Urea Nitrogen 18 mg/dL Normal 6-24 Creatinine 0.89 mg/dL Normal 0.51-0.95 BUN/Creatinine Ratio 20.2 High 8-20 Calcium 9.4 mg/dL Normal 8.6-10.3 Total Protein 6.7 g/dL Normal 6.4-8.9 Albumin 4.1 g/dL Normal 3.2-5.2 Globulin 2.6 g/dL Normal 2-4 Albumin/Globulin Ratio 1.6 Normal 1-3 Total Bilirubin 0.70 mg/dL Normal 0.2-1.0 Alkaline Phosphatase 49 U/L Normal 34-104 Alt 14 U/L Normal 7-52 Ast 20 U/L Normal 13-39 Egfr Non- 61.3 >60 Egfr 74.2 >60 1 Laboratory test 12/20/2018 [facility] C Reactive 1.84 mg/L Normal <8.01 finding [address] [facility] [place] [address] [phone] Erythrocyte Sed Rate 12 mm/Hr Normal 0-29 Iron & Iron Binding 12/20/2018 [facility] Iron 132 g/dL Normal 50-212 [address]acity [address] [place] [address] [phone] Unsaturated Iron Binding < 257 g/dL Total Iron Binding Capacity 272 g/dL Normal 250-450 Transferrin 194 mg/dL Low 203-362 % Iron Saturation 49 % Normal 15-55 Laboratory test 12/20/2018 [facility] Vitamin B12 366 pg/mL Normal 180-[address] [place] [address] [phone] CBC Auto Diff 10/18/2018 [facility] White Blood 5.7 Normal 3.5 -10.[address] Count 10^3/[place] [address] [phone] Red Blood Count 3.27 10^6/uL Low 3.70-4.87 Hemoglobin 11.3 g/dL Low 12.0-16.0 Hematocrit 33 % Low 35-47 Mean Corpuscular Volume 100 fL High 80-97 Mean Corpuscular Hemoglobin 35 pg High 27-31 Mean Corpuscular HGB Conc 35 g/dL Normal 31-36 Red Cell Distribution Width 13 % Normal 10-15 Platelet Count 263 10^3/uL Normal 150-450 Mean Platelet Volume 8.3 fL Normal 7.4-10.4 Abs Neutrophils 2.8 10^3/uL Normal 1.5-7.7 Abs Lymphocytes 2.4 10^3/uL Normal 1.0-4.8 Abs Monocytes 0.4 10^3/uL Normal 0-0.8 Abs Eosinophils 0.1 10^3/uL Normal 0-0.6 Abs Basophils 0.0 10^3/uL Normal 0-0.2 Abs Nucleated RBC 0.0 10^3/uL Granulocyte % 49.3 % Lymphocyte % 42.1 % Monocyte % 6.9 % Eosinophil % 1.2 % Basophil % 0.5 % Nucleated Red Blood Cells % 0.1 Comp Metabolic Panel 10/18/2018 [facility] Sodium 134 mmol/L Low 135-[address] [place] [address] [phone] Potassium 4.9 mmol/L Normal 3.5-5.0 Chloride 100 mmol/L Low 101-111 Co2 Carbon Dioxide 30 mmol/L Normal 22-32 Anion Gap 4 mmol/L Normal 2-11 Glucose 112 mg/dL High 70-100 Blood Urea Nitrogen 16 mg/dL Normal 6-24 Creatinine 0.83 mg/dL Normal 0.51-0.95 BUN/Creatinine Ratio 19.3 Normal 8-20 Calcium 9.6 mg/dL Normal 8.6-10.3 Total Protein 6.7 g/dL Normal 6.4-8.9 Albumin 4.1 g/dL Normal 3.2-5.2 Globulin 2.6 g/dL Normal 2-4 Albumin/Globulin Ratio 1.6 Normal 1-3 Total Bilirubin 0.80 mg/dL Normal 0.2-1.0 Alkaline Phosphatase 48 U/L Normal 34-104 Alt 16 U/L Normal 7-52 Ast 21 U/L Normal 13-39 Egfr Non- 66.5 >60 Egfr 80.4 >60 3 Laboratory test 10/18/2018 [facility] C Reactive 3.00 mg/L Normal <8.01 [address] [place] [address] [phone] Erythrocyte Sed Rate 19 mm/Hr Normal 0-29 5 Vitamin B12 428 pg/mL Normal 180-914 6 Iron & Iron Binding 10/18/2018 [facility] Iron 89 g/dL Normal 50-[address] [place] [address] [phone] Unsaturated Iron Binding < 255 g/dL Total Iron Binding Capacity 270 g/dL Normal 250-450 Transferrin 193 mg/dL Low 203-362 % Iron Saturation 33 % Normal 15-55 1 Because ethnic data is not always [...] 5 Kidney failure <15 (or dialysis) 2 Normal Range 180 to 914 Indeterminate Range 145 to 180 Deficient Range <145 3 Because ethnic data is not always readily [...] 15-29 5 Kidney failure <15 (or dialysis) 4 standing order q 8 weeks or as directed 5 standing order q 8 weeks or as directed 6 Normal Range 180 to 914 Indeterminate Range 145 to 180 Deficient Range <145 Procedures Date Code Description Status 01/20/2016 583513768 Bone Mineral Density Test Completed 01/20/2016 57128620 Mammogram Completed 01/04/2015 09111701 Mammogram Completed Medical Devices Description No Information Available Encounters Type Date Location Provider Dx Diagnosis Office Visit 09/20/2018 Rheumatology Rosibel Sarabia, M06.09 Rheumatoid 2:30p [facility] INSIDE SAL[employer] LEAD arthritis w/o rheumatoid factor, multiple sites M85.80 Oth disrd of bone density and structure, unspecified site Z79.899 Other retirement (current) drug therapy D64.9 Anemia, unspecified R05 Cough Assessments Date Code Description Provider 01/10/2019 M06.09 Rheumatoid arthritis without rheumatoid factor, Zsofia Cornell, [employer] SAL[employer] LEAD multiple sit 01/10/2019 D64.9 Anemia, unspecified Zsofia Cornell, INSIDE SALES LEAD 01/10/2019 M85.9 Disorder of bone density and structure, Zsofia Cornell, [employer] SAL[employer] LEAD unspecified 01/10/2019 Z79.899 Other retirement (current) drug therapy Zsofia Cornell, INSIDE SALES LEAD 09/20/2018 M06.09 Rheumatoid arthritis without rheumatoid factor, Zsofia Cornell, INSIDE SALES LEAD multiple sit 09/20/2018 M85.80 Other specified disorders of bone density and Zsofia Cornell, INS[employer] SALES LEAD structure, uns 09/20/2018 Z79.899 ied site Zsofia Cornell, [employer] SALES LEAD 09/20/2018 D64.9 Anemia, unspecified Zsofia Cornell, INSIDE SALES LEAD 09/20/2018 R05 Cough MADDIE Flanagan Plan of Treatment 01/10/2019 - Rosibel Sarabia, FNPM06.09 Rheumatoid arthritis without rheumatoid factor, multiple sitComments:Your arthritis seems to be clinically well controlled at this time.We discussed to continue on Simponi, start back on MTX and continue on HCQ.Please call the office if you develop any sign or symptoms of infection or acute change in your health.Follow up:in August when back XloavcwO76.9 Anemia, unspecifiedComments:wjrhmyE18.9 Disorder of bone density and structure, unspecifiedNew Xrays:Dexa Bone Dens Axial Skeleton (Hips, Pelvis , Spine), Ordered: 01/10/19Comments:OSTEOPENIA:You should be getting at least 1200 mg of calcium and 800 IU of Vitamin D on a daily basis in your diet and/or with supplementation. Calcium citrate is the most bioavailable preparation; dairy and green green leaf vegetables are excellent source. It is also very important to be doing weight bearing exercises regularly. Your last DEXA (bone density test) was in January 2016Z79.899 Other assistant terminal manager (current) drug therapyComments:Please call if have any problem Functional Status Description No Information Available Mental Status Description No Information Available Referrals Description No Information Available
--- OUTSIDE RECORDS SUMMARY | 2019-01-30 13:42 | XMS REPORT | Continuity of Care Document ---
:1940 External Reference #:[id number] Author Name Rob Flores M.D. Address [address] [place] [address] Care Team Providers Name Role Phone Stanislav Maldonado M.D. - Internal Care Team Information Clerical Investigator Medicine Rosibel Sarabia VIDEO GAME DEVELOPER - Nurse Care Team Information Clerical Investigator [phone] Practitioner Problems Active Problems Provider Date Rheumatoid arthritis Onset: Postoperative cystoid macular edema Rob Flores M.D. Onset: 10/21/2017 Arterial retinal branch occlusion Rob Flores M.D. Onset: 11/23/2017 Social History Type Date Description Comments Sex Unknown ETOH Use Consumes 1 glass of wine per day Tobacco Use Start: Unknown End: Patient is a former smoker Unknown Recreational Drug Use Denies Drug Use Smoking Status Reviewed: 01/03/19 Patient is a former smoker Allergies, Adverse Reactions, Alerts Description No Known Drug Allergies Medications Active Medications SIG Qnty Indications Ordering Provider Date Systane as needed Rob Flores, 11/22/2017 0.4-0.3% Solution Maru Methotrexate Sodium Take 3 Tablets By Unknown 10/20/2017 2.5mg Mouth Every Week Tablets Simponi Rosibel Sarabia VIDEO GAME DEVELOPER 10/20/2017 50mg/0.5ML Soln Prefill Syringe Folic Acid Take One Tablet Unknown 10/20/2017 1mg Tablets By Mouth Every Day Amlodipine Besylate Rosibel Sarabia VIDEO GAME DEVELOPER 10/20/2017 2.5mg Tablets Multi Vitamin Unknown 10/20/2017 Tablets Olmesartan Medoxomil Unknown 20mg Tablets Lansoprazole Unknown 30mg Capsules DR Estradiol Unknown 0.1mg/GM Cream Immunizations Description No Information Available Vital Signs Description No Information Available Results Description No Information Available Procedures Description No Information Available Medical Devices Description No Information Available Encounters Description No Information Available Assessments Date Code Description Provider 01/03/2019 H43.813 Vitreous degeneration, bilateral Rob Flores M.D. 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 left eye, stable Plan of Treatment 01/03/2019 - Rob Flores M.D.H43.813 Vitreous degeneration, bilateralComments:Smoking can increase the risk of developing or worsening any eye related disease, as well as affect your overall health. If you are a smoker , we strongly recommend that you quit.If you are not a smoker, we strongly recommend that you do not start. You have a Posterior Vitreous Detachment. If you have any changes in your floaters or flashing lights, please contact this office.Follow up:2 Year Follow Up DFE You can expect to have your eyes dilated at your next visit. If Dr. Flores orders any additional testing, it may require extra time. We recommend that you bring sunglasses, as dilation drops often make you light sensitive until they wear off. We always recommend you bring someone to drive you home if you are uncomfortable driving with your eyes dilated. If you have any questions before your next visit, feel free to call our office at .H34.8322 Tributary (branch) retinal vein occlusion , left eye, stableComments:You have a Branch Retinal Vein Occlusion in your left eye. This is when the small veins of the retina have become blocked. Please follow any instructions given to you by Dr. Flores. Functional Status Description No Information Available Mental Status Description No Information Available Referrals Description No Information Available
[2019-01-30 13:43] VITALS: BP 143/58
== END 2019-01-30 14:28 | disposition home or self-care (01) ==
LOC: UCEAST 13:37
DX: R05 Cough (principal); J02.9 Acute pharyngitis, unspecified; R09.82 Postnasal drip; R09.89 Other specified symptoms and signs involving the circulatory and respiratory systems; J34.89 Other specified disorders of nose and nasal sinuses; I10 Essential (primary) hypertension; M06.9 Rheumatoid arthritis, unspecified
CPT/HCPCS: 71046; 99211; G0463

== ENCOUNTER 2019-02-12 20:29 | Emergency (ER) | payer MEDICARE, BC ==
--- OUTSIDE RECORDS SUMMARY | 2019-02-12 20:39 | XMS REPORT | Continuity of Care Document ---
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 Onset: 04/21/2011 Rheumatoid arthritis Stanislav Maldonado M.D. Onset: 04/21/2011 Pure hypercholesterolemia Stanislav Maldonado M.D. Onset: 04/21/2011 Family history of ischemic heart disease Stanislav Maldonado M.D. Onset: 04/21 Low back pain Stanislav Maldonado M.D. Onset: 02/29/2012 Social History Type Date Description Comments Sex Unknown Tobacco Use Start: Unknown Nonsmoker Smoking Status Reviewed: 02/06/19 Nonsmoker Allergies, Adverse Reactions, Alerts Active Allergies Reaction Severity Comments Date Nka 09/04/1998 Medications Active Medications SIG Qnty Indications Ordering Date Provider Cyclobenzaprine HCL take 1 tablets 30tabs M54.5 Carey Cara 02/06/2019 5mg by mouth every 8 Chavez, PEDIATRIC PHYSICIAN Tablets as needed for back spasm - do not drive if drowsy Percocet 1 tabs by mouth 20tabs M54.5 Carey Ann 02/06/2019 5-325mg Tablets every 6 hours as Scott PEDIATRIC PHYSICIAN needed for pain Medrol take dose pack 1units M54.5 Carey Marroquin 02/06/2019 4mg TBPK as directed SARAH Chavez Methotrexate 3 tablets po a 16tabs Unknown 2.5mg Tablets week Olmesartan Medoxomil 1 po qd Unknown 20mg Tablets Simponi inject 50mg Unknown 50mg/0.5ML Soln qmonth Prefill Syringe Folic Acid 1 by mouth every Unknown 1mg Tablets day Immunizations CPT Code Status Date Vaccine Lot # [id number] Given 01/08/2016 High-Dose, Influenza Virus Vacccine-fluzone 65 [id number] and older 09462 Given 01/02/2015 Pneumococcal Conjugate Vacc-13 [id number] 66741 Given 01/12/2014 DO Not Use Split Influenza Virus Vaccine [id number] Given 02/29/2012 High-Dose, Influenza Virus Vacccine-fluzone 65 [id number] and older 71787 Given 02/13/2010 DO Not Use Split Influenza Virus Vaccine [id number] 13949 Given 08/07/2008 Tetanus And Diptheria Adult Preservative Free [id number] >7Yrs 13763 Given 04/05/2008 DO Not Use Split Influenza Virus Vaccine [id number] 42799 Given 04/07/2006 Pneumococcal Immunization [id number] 26368 Given 04/07/2006 DO Not Use Split Influenza Virus Vaccine [id number] 18979 Given 02/28/2003 DO Not Use Split Influenza Virus Vaccine Vital Signs Date Vital Result Comment 02/06/2019 10:02am BP Systolic 128 mmHg BP Diastolic 60 mmHg Heart Rate 72 /min Body Temperature 98.1 F Respiratory Rate 16 /min Height 61.5 inches 5'1.50" Weight 139.25 lb BMI (Body Mass Index) 25.9 kg/m2 12/14/2017 10:19am BP Systolic 124 mmHg BP Diastolic 60 mmHg Heart Rate 66 /min Body Temperature 97.7 F Respiratory Rate 16 /min Height 61.5 inches 5'1.50" Weight 138.50 lb BMI (Body Mass Index) 25.7 kg/m2 Results Description No Information Available Procedures Date Code Description Status 02/01/2019 778327927 Bone Mineral Density Test Completed 05/16/2018 [id number] Mammogram Completed 01/20/2017 [id number] Mammogram Completed 01/20/2016 [id number] Mammogram Completed 01/04/2015 [id number] Mammogram Completed 02/18/2010 [id number] Mammogram Completed 08/28/2008 [id number] Mammogram Completed 04/22/2006 [id number] Mammogram Completed 05/03/2001 [id number] Colonoscopy Completed Medical Devices Description No Information Available Encounters Description No Information Available Assessments Date Code Description Provider 02/06/2019 M54.5 Low back pain Carey Chavez NP 02/06/2019 J02.9 Acute pharyngitis, unspecified Carey Chavez NP Plan of Treatment 02/06/2019 - Carey Chavez, NPM54.5 Low back painNew Medication: Cyclobenzaprine HCL 5 mg - take 1 tablets by mouth every 8 as needed for back spasm - do not drive if drowsyPercocet 5-325 mg - 1 tabs by mouth every 6 hours as needed for painMedrol 4 mg - take dose pack as directedComments:Apply heat packs to affected area. Use acetaminophen/ibuprofen/aleve for pain as directed. Avoid heavy lifting. Do farhat stretching but nothing strenuous. Sleep in a bed , avoid couches or recliners. Muscle relaxer: take at night. do not drink alcohol with this medication. Do no drive or operate heavy machinery with this medication due to its sedating effects. Return if condition worsens, fails to improve or if concerning features arise.J02.9 Acute pharyngitis, unspecifiedComments:Supportive care: 1) Make sure you are resting. This is the only way the body can take the energy it needs to heal itself. 2) Fluids, fluids , fluids! - Drink a lot of water or other caffeine free, clear liquids - Use a humidifier in your room at night - Try either hot tea with lemon or honey or some cool ice pops if that feels better. 4) Make sure you are washing your hands well so you are not spreading your illness to the community. 5) Switch out your toothbrush to prevent reinfection.6) you can try taking Cepacol to help ease the pain of the sore throat7) voice rest Call if you haveany questions or concerns, worsening condition or failure to improve.AllComments:Medication Management Patient Understands medications he ' s taking? Yes No Are there Barriers to Adherence? Yes No Has the patient been asked about herbal supplements and therapies, andOTC meds? Yes No Care Plan1. Patient has been queried about patient's goals/ preferences and functional/lifestyle goals at relevant visits. If relevant, describe: na2. Treatment goals as explained to the patient: above3. Are there barriers to meeting treatment goals? Yes No If Yes, please describe: comorbid conditions, disease process, polypharmacy 4. Self-Management goals as described to the patient: Yes NoAs always, we strongly encourage a healthy diet and making physical activity a part of your every day life. If you have questions about how or where to start, please contact the office. Functional Status Description No Information Available Mental Status Description No Information Available Referrals Description No Information Available
[2019-02-12] MEDS ORDERED: Sodium Phosphate ADULT ENEMA* 118 ml bottle PR ONE (21:53)
[2019-02-12] MEDS ORDERED: Ibuprofen TAB* 600 MG PO ONE (22:11)
--- NOTE | 2019-02-12 22:11 | ED ---
Complex/Multi-Sys Presentation - HPI Summary HPI Summary: Patient is a 78 y/o F presenting to [facility] with complaints of back pain and constipation. She states that back pain onset several days ago. Patient was evaluated by medical provider. There were concerns for sciatica, patient was placed on oxycodone and flexeril, which she has been taking for the past six days. She reports that she has been taking these medications consistently and notes that she has not had a "decent" bowel movement since four days ago, . She began to experience nausea and decreased appetite today, 02/12/19, but denies vomiting. Vitals in room are pulse 94, o2 100, BP 173/86. 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 Home medications and allergies are reviewed. - History Of Current Complaint Chief Complaint: EDConstipation Time Seen by Provider: 02/12/19 20:50 Hx Obtained From: Patient Onset/Duration: Lasting Hours - nausea, decreased appetite, Lasting Days - back pain, constipation, Still Present Timing: Constant, Hours - nausea, decreased appetite, Days - back pain, constipation Severity Currently: Severe Location: Pain At: - back Aggravating Factor(s): nothing Alleviating Factor(s): nothing Associated Signs And Symptoms: Positive: Nausea, Back Pain, Other - positive - constipation, decreased appetite. Negative: Vomiting - Allergies/Home Medications Allergies/Adverse Reactions: Allergies Allergy/AdvReac Type Severity Reaction Status Date / Time No Known Allergies Allergy Verified 02/12/19 20:34 Home Medications: Home Medications Cyclobenzaprine TAB* [Flexeril 10 MG TAB*] 5 mg PO TID PRN 02/12/19 [History Confirmed 02/12/19] oxyCODONE/Acetamin 5/325 MG* [Percocet 5/325 TAB*] 1 tab PO Q6H PRN 02/12/19 [ History Confirmed 02/12/19] PMH/Surg Hx/FS Hx/Imm Hx Cardiovascular History: Reports: Hx Hypertension Sensory History: Denies: Hx Legally Blind, Hx Deafness Opthamlomology History: Denies: Hx Legally Blind EENT History: Denies: Hx Deafness - Cancer History Hx Chemotherapy: No Hx Radiation Therapy: No - Surgical History Surgery Procedure, Year, and Place: bunions removed Infectious Disease History: No Infectious Disease History: Reports: Traveled Outside the [place] in Last 30 Days - [place] - Family History Known Family History: Positive: Other - no GI diseases - Social History Alcohol Use: Daily Alcohol Amount: "couple glasses of wine" Substance Use Type: Reports: None Hx Tobacco Use: No Smoking Status (MU): Former Smoker Review of Systems Gastrointestinal: Other - positive - constipation, decreased appetite Positive: Nausea. Negative: Vomiting Musculoskeletal: Other - positive - back pain All Other Systems Reviewed And Are Negative: Yes Physical Exam - Summary Physical Exam Summary: Appearance: Well-appearing, Well-nourished, lying in bed comfortably Skin: Warm, dry, no obvious rash Eyes: sclera anicteric, no conjunctival pallor ENT: mucous membranes moist, pharynx appears normal Neck: Supple, nontender Respiratory: Clear to auscultation, no signs of respiratory distress Cardiovascular: Normal S1, S2. No murmurs. Normal distal pulses in tibial and radial bilaterally. Abdomen: Soft, nontender, normal active bowel sounds present Rectal Exam: large amount of hard stool consistent with fecal impaction Musculoskeletal: Normal, Strength/ROM Intact Neurological: A&Ox3, awake and alert, mentation is normal, speech is fluent and appropriate Psychiatric: affect is normal, does not appear anxious or depressed Triage Information Reviewed: Yes Vital Signs On Initial Exam: Initial Vitals Temp Pulse Resp BP Pulse Ox 98.3 F 109 15 153/92 100 02/12/19 20:32 02/12/19 20:32 02/12/19 20:32 02/12/19 20:32 02/12/19 20:32 Vital Signs Reviewed: Yes Procedures - Sedation Patient Received Moderate/Deep Sedation with Procedure: No Diagnostics - Vital Signs Vital Signs Temp Pulse Resp BP Pulse Ox 02/12/19 20:32 98.3 F 109 15 153/92 100 - Laboratory Result Diagrams: 02/13/19 00:18 02/13/19 00:18 Lab Statement: Any lab studies that have been ordered have been reviewed, and results considered in the medical decision making process. Re-Evaluation - Re-Evaluation First Eval Re-Evaluation Time: 22:57 Comment: Nurse Petersen reports that the patient had a large bowel movement and is feeling better. However, at this time, when she points to the location of her pain, she points to her flank. She denies radiation of pain down her legs. Complex Multi-Symp Course/Dx Course Of Treatment: Patient is a 78 y/o F presenting to [facility] with complaints of back pain and constipation. She states that back pain onset several days ago. Patient was evaluated by medical provider. There were concerns for sciatica , patient was placed on oxycodone and flexeril, which she has been taking for the past six days. She reports that she has been taking these medications consistently and notes that she has not had a "decent" bowel movement since four days ago, 02/08/19. She began to experience nausea and decreased appetite today, 02/12/19, but denies vomiting. Rectal Exam: large amount of hard stool consistent with fecal impaction. Bloodwork was obtained. Abnormal values include WBC 14, RBC 3.66, MCV 99, MCH 33, MPV 7.1, absolute neuts 10.6, absolute monos 0.9, sodium 130, chloride 97, BUN 33, creatinine 1.01, BUN/ creatinine ratio 32.7. UA showed 2+ leukocyte esterase, 3+ WBC, squamous epith cells present. During ED course, patient received fleet enema and motrin 600 mg PO. She was able to have a bowel movement in the ED. Nurse Trinity reported that the patient had been pointing to her flank when describing the location of her pain. Cultures were obtained. Patient was given Cefdinir 300 mg PO in ED as well as prescription for this antibiotic. She was discharged and will follow up with PCP. - Diagnoses Provider Diagnoses: Fecal impaction, Pyelonephritis Discharge ED - Sign-Out/Discharge Documenting (check all that apply): Patient Departure - discharge - Discharge Plan Condition: Good Disposition: HOME Prescriptions: Cefdinir cap* [Cefdinir 300 MG cap (NF)] 300 mg PO BID #20 cap Patient Education Materials: Kidney Infection (ED), Fecal Impaction (ED) Referrals: Stanislav Maldonado MD [Primary Care Provider] - 3 Days Additional Instructions: Contact your PCP's office and let them know about your visit tonight, in particular that we suspect you may have a kidney infection so they can followup on the culture results in 2-3 days. If all or some of your pain is due to a kidney infection as I suspect, it will take several days on the antibiotic to start feeling better. As long as you are not worsening, you can stay at home and take the prescribed antibiotic. - Billing Disposition and Condition Condition: GOOD Disposition: Home - Attestation Statements Document Initiated by Joyce: Yes Documenting Scribe: PERLA RODRIGUEZ Provider For Whom Joyce is Documenting (Include Credential): WANDER MARQUES MD Scribe Attestation: I, PERLA RODRIGUEZ, scribed for WANDER MARQUES MD on 02/13/19 at 0544. Scribe Documentation Reviewed: Yes Provider Attestation: The documentation as recorded by the PERLA ramirez accurately reflects the service I personally performed and the decisions made by me, WANDER MARQUES MD Status of [place] Document: Viewed
[2019-02-12 23:57] LABS: Urine Appearance Clear; Urine Bacteria Absent (Absent); Urine Bilirubin Negative (Negative); Urine Blood Negative (Negative); Urine Color Yellow; Urine Glucose Negative (Negative); Urine Ketones Negative (Negative); Urine Nitrite Negative (Negative); Urine Protein Negative (Negative); Urine Red Blood Cell Absent (Absent); Urine Specific Gravity 1.019 (1.010-1.030); Urine Squamous Epithelial Cell Present (Absent); Urine Urobilinogen Negative (Negative); Urine White Blood Cell 3+(>20/hpf) (Absent)
[2019-02-13 00:25] LABS: ABS Basophils 0.1 10^3/ul (0-0.2); ABS Eosinophils 0.1 10^3/ul (0-0.6); ABS Lymphocytes 2.3 10^3/ul (1.0-4.8); ABS Monocytes 0.9 10^3/ul (0-0.8); ABS Neutrophils 10.6 10^3/ul (1.5-7.7); Eosinophil % 0.6 %; Hematocrit 36 % (35-47); Hemoglobin 12.2 g/dL (12.0-16.0); Lymphocyte % 16.8 %; Mean Corpuscular HGB Conc 34 g/dL (31-36); Mean Corpuscular Hemoglobin 33 pg (27-31); Mean Corpuscular Volume 99 fL (80-97); Mean Platelet Volume 7.1 fL (7.4-10.4); Platelet Count 317 10^3/uL (150-450); Red Blood Count 3.66 10^6 /uL (3.70-4.87); Red Cell Distribution Width 13 % (10-15)
[2019-02-13 00:46] LABS: Albumin 4.1 g/dL (3.2-5.2); Albumin/Globulin Ratio 1.5 (1-3); BUN/Creatinine Ratio 32.7 (8-20); C Reactive Protein 3.14 mg/L (<8.01); Calcium 9.1 mg/dL (8.6-10.3); EGFR African American 64.1 (>60); Globulin 2.8 g/dL (2-4); Potassium 4.7 mmol/L (3.5-5.0); Total Protein 6.9 g/dL (6.4-8.9)
[2019-02-13] MEDS ORDERED: Cefdinir cap* 300 MG CAP PO SCH (01:00)
[2019-02-13 01:10] VITALS: BP 177/81
== END 2019-02-13 01:10 | disposition home or self-care (01) ==
LOC: ED 20:29
DX: K56.41 Fecal impaction (principal); N10 Acute pyelonephritis; R11.0 Nausea; I10 Essential (primary) hypertension; Z87.891 Personal history of nicotine dependence
CPT/HCPCS: 36415; 80053; 81003; 81015; 83605; 85025; 86140; 87086; 99283; A9270-GY

== ENCOUNTER 2022-01-21 16:08 | Inpatient (IN) ==
[2022-01-21] MEDS ORDERED: Ondansetron ODT 4 mg TAB 4 MG TAB PO ONE (16:44)
[2022-01-21 22:37] LABS: ABS Monocytes 0.6 10^3/ul (0-0.8); ABS Neutrophils 4.8 10^3/ul (1.5-7.7); Eosinophil % 0.1 %; Hematocrit 36 % (35-47); Lymphocyte % 16.1 %; Mean Corpuscular HGB Conc 33 g/dL (31-36); Mean Corpuscular Hemoglobin 33 pg (27-31); Mean Corpuscular Volume 98 fL (80-97); Mean Platelet Volume 7.3 fL (7.4-10.4); Platelet Count 362 10^3/uL (150-450); Red Blood Count 3.68 10^6 /uL (3.70-4.87); Red Cell Distribution Width 13 % (10-15); White Blood Count 6.4 10^3/uL (3.5-10.8)
[2022-01-21 22:41] LABS: INR 1.17 (0.89-1.11)
[2022-01-21 23:23] LABS: Albumin 3.6 g/dL (3.2-5.2); Albumin/Globulin Ratio 1.3 (1-3); C Reactive Protein 36.64 mg/L (<8.01); Calcium 8.7 mg/dL (8.6-10.3); Globulin 2.7 g/dL (2-4); Magnesium 1.9 mg/dL (1.9-2.7); Total Bilirubin 0.5 mg/dL (0.2-1.0); Total Protein 6.3 g/dL (6.4-8.9); eGFR CKD-EPI 25.6 (>60)
[2022-01-21 23:26] LABS: Potassium 5.5 mmol/L (3.5-5.0)
[2022-01-22] MEDS ORDERED: NS 0.9% 1000 ml BAG 1,000 ML IV ONE (01:42)
[2022-01-22] MEDS ORDERED: Ondansetron 4 mg VIAL 2 MG/ML 2 ml VIAL IV ONE (01:43)
[2022-01-22] MEDS ORDERED: NS 0.9% 1000 ml BAG 1,000 ML IV SCH (03:00)
[2022-01-22] MEDS: Ondansetron ODT 4 mg TAB 4 MG TAB PO PRN ×3 (05:00→18:17)
[2022-01-22 05:16] LABS: ABS Lymphocytes 1.4 10^3/ul (1.0-4.8); ABS Monocytes 0.7 10^3/ul (0-0.8); ABS Neutrophils 4.5 10^3/ul (1.5-7.7); Eosinophil % 0.3 %; Hematocrit 32 % (35-47); Hemoglobin 10.9 g/dL (12.0-16.0); Lymphocyte % 20.7 %; Mean Corpuscular HGB Conc 34 g/dL (31-36); Mean Corpuscular Hemoglobin 33 pg (27-31); Mean Corpuscular Volume 98 fL (80-97); Mean Platelet Volume 7.4 fL (7.4-10.4); Platelet Count 336 10^3/uL (150-450); Red Blood Count 3.31 10^6 /uL (3.70-4.87); Red Cell Distribution Width 14 % (10-15); White Blood Count 6.7 10^3/uL (3.5-10.8)
[2022-01-22 06:10] LABS: HIV 4th Generation Nonreactive (Nonreactive)
[2022-01-22 06:12] LABS: ALT 13 U/L (7-52); Albumin 3.2 g/dL (3.2-5.2); Albumin/Globulin Ratio 1.3 (1-3); Alkaline Phosphatase 38 U/L (35-149); Blood Urea Nitrogen 22 mg/dL (6-24); C Reactive Protein 35.37 mg/L (<8.01); CO2 Carbon Dioxide 16 mmol/L (22-32); Calcium 7.8 mg/dL (8.6-10.3); Chloride 103 mmol/L (101-111); Globulin 2.4 g/dL (2-4); Glucose 64 mg/dL (70-100); Sodium 133 mmol/L (135-145); Total Protein 5.6 g/dL (6.4-8.9); eGFR CKD-EPI 34.5 (>60)
[2022-01-22 06:15] LABS: Anion Gap 14 mmol/L (2-11)
[2022-01-22 06:16] LABS: TSH Ultra Thyroid Stim Horm 9.01 mcIU/mL (0.34-5.60)
[2022-01-22 07:21] LABS: Magnesium 1.9 mg/dL (1.9-2.7); Potassium Redraw 4.7 mmol/L (3.5-5.0)
[2022-01-22] MEDS: Heparin 5000 UNITS/ML 1 mL VIAL SUBCUT SCH ×2 (08:43→21:40)
[2022-01-22 09:50] LABS: Urine Appearance Clear; Urine Bilirubin Negative (Negative); Urine Blood Negative (Negative); Urine Color Yellow; Urine Glucose Negative (Negative); Urine Ketones 1+ (Negative); Urine Nitrite Negative (Negative); Urine Protein Negative (Negative); Urine Specific Gravity 1.011 (1.002-1.030); Urine Urobilinogen Negative (Negative)
[2022-01-22] MEDS ORDERED: metroNIDAZOLE IV 500 MG/100ML 500 MG/100 ML BAG IVPB SCH (10:30)
[2022-01-22 11:31] LABS: Potassium 4.3 mmol/L (3.5-5.0); eGFR CKD-EPI 35.1 (>60)
[2022-01-22] MEDS: cefTRIAXone 1 gm/50 mL D5W 1 GM/50 ML BAG IV SCH (13:40)
[2022-01-22] MEDS ORDERED: PEG 3000 GI LAVAGE 1 GALLON PO ONE (17:06)
[2022-01-22] MEDS: metroNIDAZOLE IV 500 MG/100ML 500 MG/100 ML BAG IVPB SCH (22:56)
[2022-01-23 06:10] LABS: Hematocrit 31 % (35-47); Hemoglobin 10.6 g/dL (12.0-16.0); Mean Corpuscular HGB Conc 34 g/dL (31-36); Mean Corpuscular Hemoglobin 33 pg (27-31); Mean Corpuscular Volume 97 fL (80-97); Mean Platelet Volume 7.1 fL (7.4-10.4); Platelet Count 333 10^3/uL (150-450); Red Blood Count 3.24 10^6 /uL (3.70-4.87); Red Cell Distribution Width 13 % (10-15); White Blood Count 6.8 10^3/uL (3.5-10.8)
[2022-01-23 07:02] LABS: Magnesium 1.8 mg/dL (1.9-2.7); Potassium 4.2 mmol/L (3.5-5.0); eGFR CKD-EPI 44.6 (>60)
[2022-01-23] MEDS ORDERED: Magnesium Sulfate 2 gm BAG 2 GM/50 ML BAG IVPB ONE (07:12)
[2022-01-23] MEDS: Heparin 5000 UNITS/ML 1 mL VIAL SUBCUT SCH ×2 (08:07→20:19)
[2022-01-23] MEDS: Ondansetron ODT 4 mg TAB 4 MG TAB PO PRN (08:14)
[2022-01-23 08:26] LABS: ABS Lymphocytes 1.4 10^3/ul (1.0-4.8); ABS Monocytes 0.7 10^3/ul (0-0.8); ABS Neutrophils 4.6 10^3/ul (1.5-7.7); Eosinophil % 0.2 %; Lymphocyte % 20.8 %; Nucleated Red Blood Cells % 0.1
[2022-01-23] MEDS: metroNIDAZOLE IV 500 MG/100ML 500 MG/100 ML BAG IVPB SCH ×2 (11:22→23:09)
[2022-01-23] MEDS: cefTRIAXone 1 gm/50 mL D5W 1 GM/50 ML BAG IV SCH (13:09)
[2022-01-23] MEDS ORDERED: Midazolam 10 mg/10 ml VIAL 1 mg/ml 10 ml VIAL (10 mg) ONE (14:54)
[2022-01-23] MEDS ORDERED: fentaNYL 100 mcg/2 ml 50 MCG/ML VIAL ONE (14:55)
[2022-01-24] MEDS: Ondansetron ODT 4 mg TAB 4 MG TAB PO PRN ×3 (05:42→22:48)
[2022-01-24 06:06] LABS: ABS Lymphocytes 1.7 10^3/ul (1.0-4.8); ABS Monocytes 0.9 10^3/ul (0-0.8); ABS Neutrophils 6.1 10^3/ul (1.5-7.7); Eosinophil % 0.1 %; Hematocrit 33 % (35-47); Hemoglobin 11.2 g/dL (12.0-16.0); Lymphocyte % 20.1 %; Mean Corpuscular HGB Conc 34 g/dL (31-36); Mean Corpuscular Hemoglobin 33 pg (27-31); Mean Corpuscular Volume 96 fL (80-97); Mean Platelet Volume 7.1 fL (7.4-10.4); Platelet Count 362 10^3/uL (150-450); Red Blood Count 3.44 10^6 /uL (3.70-4.87); Red Cell Distribution Width 13 % (10-15); White Blood Count 8.7 10^3/uL (3.5-10.8)
[2022-01-24 06:28] LABS: Calcium 7.9 mg/dL (8.6-10.3); Potassium 3.8 mmol/L (3.5-5.0); eGFR CKD-EPI 56.6 (>60)
[2022-01-24] MEDS: Heparin 5000 UNITS/ML 1 mL VIAL SUBCUT SCH ×2 (09:26→20:00)
[2022-01-24] MEDS: metroNIDAZOLE IV 500 MG/100ML 500 MG/100 ML BAG IVPB SCH ×2 (10:49→22:48)
[2022-01-24] MEDS: cefTRIAXone 1 gm/50 mL D5W 1 GM/50 ML BAG IV SCH (13:58)
[2022-01-24 18:29] LABS: C Reactive Protein 21.27 mg/L (<8.01)
[2022-01-25 01:07] LABS: Adenovirus F40/41 Negative (Negative); Astrovirus Negative (Negative); Cryptosporidium species Negative (Negative); Cyclospora cayetanensis Negative (Negative); Entamoeba histolytica Negative (Negative); Enteroaggregative E.coli(EAEC) Negative (Negative); Enteropathogenic Ecoli(EPEC) Negative (Negative); Enterotoxigenic Ecoli(ETEC) Negative (Negative); Norovirus GI/GII Negative (Negative); Plesiomonas shigelloides Negative (Negative); Salmonella species Negative (Negative); Sapovirus Negative (Negative); Shiga toxin producing E. coli Negative (Negative); Shigella/Enteroinvasive E.coli Negative (Negative); Specimen Source STOOL; Vibrio cholerae Negative (Negative); Yersinia species Negative (Negative)
[2022-01-25 08:13] LABS: Magnesium 1.8 mg/dL (1.9-2.7); Potassium 3.9 mmol/L (3.5-5.0); eGFR CKD-EPI 64.2 (>60)
[2022-01-25] MEDS ORDERED: Magnesium Sulfate 2 gm BAG 2 GM/50 ML BAG IVPB ONE (09:27)
[2022-01-25] MEDS: Heparin 5000 UNITS/ML 1 mL VIAL SUBCUT SCH ×2 (09:27→21:19)
[2022-01-25] MEDS: Ondansetron ODT 4 mg TAB 4 MG TAB PO PRN (09:37)
[2022-01-25] MEDS ORDERED: Simethicone SUSP ORALSYR 66.66 MG/ML PO PRN (13:54)
[2022-01-25] MEDS: metroNIDAZOLE IV 500 MG/100ML 500 MG/100 ML BAG IVPB SCH ×2 (14:19→23:24)
[2022-01-25] MEDS: methylPREDNISolone SOD SUCC 40 mg/ml 1 ml VIAL IV SCH ×2 (14:27→21:20)
[2022-01-25] MEDS: cefTRIAXone 1 gm/50 mL D5W 1 GM/50 ML BAG IV SCH (15:45)
[2022-01-26 06:26] LABS: Hematocrit 30 % (35-47); Hemoglobin 10.4 g/dL (12.0-16.0); Mean Corpuscular HGB Conc 35 g/dL (31-36); Mean Corpuscular Hemoglobin 33 pg (27-31); Mean Corpuscular Volume 96 fL (80-97); Mean Platelet Volume 7.5 fL (7.4-10.4); Platelet Count 331 10^3/uL (150-450); Red Blood Count 3.11 10^6 /uL (3.70-4.87); Red Cell Distribution Width 13 % (10-15); White Blood Count 5.8 10^3/uL (3.5-10.8)
[2022-01-26 07:03] LABS: Magnesium 2.3 mg/dL (1.9-2.7); Potassium 5.2 mmol/L (3.5-5.0); eGFR CKD-EPI 53.4 (>60)
[2022-01-26] MEDS: Heparin 5000 UNITS/ML 1 mL VIAL SUBCUT SCH ×2 (08:56→20:51)
[2022-01-26] MEDS: methylPREDNISolone SOD SUCC 40 mg/ml 1 ml VIAL IV SCH ×2 (08:57→20:51)
[2022-01-26] MEDS: Ondansetron ODT 4 mg TAB 4 MG TAB PO PRN (09:10)
[2022-01-26] MEDS: metroNIDAZOLE IV 500 MG/100ML 500 MG/100 ML BAG IVPB SCH ×2 (10:57→23:07)
[2022-01-26] MEDS: cefTRIAXone 1 gm/50 mL D5W 1 GM/50 ML BAG IV SCH (12:15)
[2022-01-26 15:24] LABS: Free T4 1.06 ng/dL (0.61-1.12)
[2022-01-27 05:24] LABS: ABS Lymphocytes 1.2 10^3/ul (1.0-4.8); ABS Monocytes 0.5 10^3/ul (0-0.8); ABS Neutrophils 7.4 10^3/ul (1.5-7.7); Hematocrit 28 % (35-47); Hemoglobin 9.5 g/dL (12.0-16.0); Lymphocyte % 13.3 %; Mean Corpuscular HGB Conc 34 g/dL (31-36); Mean Corpuscular Hemoglobin 32 pg (27-31); Mean Corpuscular Volume 96 fL (80-97); Mean Platelet Volume 7.4 fL (7.4-10.4); Platelet Count 339 10^3/uL (150-450); Red Blood Count 2.94 10^6 /uL (3.70-4.87); Red Cell Distribution Width 13 % (10-15); White Blood Count 9.1 10^3/uL (3.5-10.8)
[2022-01-27 05:55] LABS: Potassium 4.4 mmol/L (3.5-5.0); eGFR CKD-EPI 45.5 (>60)
[2022-01-27] MEDS ORDERED: NS 0.9% 1000 ml BAG 1,000 ML IV ONE (06:32)
[2022-01-27] MEDS: Heparin 5000 UNITS/ML 1 mL VIAL SUBCUT SCH (08:03)
[2022-01-27] MEDS: methylPREDNISolone SOD SUCC 40 mg/ml 1 ml VIAL IV SCH (08:04)
[2022-01-27 10:40] VITALS: BP 131/56
[2022-01-27] MEDS: metroNIDAZOLE IV 500 MG/100ML 500 MG/100 ML BAG IVPB SCH (11:31)
[2022-01-29 14:29] LABS: Calprotectin 379 mcg/g
== END 2022-01-27 15:00 | disposition home or self-care (01) | DRG 392 ==
LOC: EDHOLD 16:08 → ED 16:08 → SUATTDRO 01-22 02:54 → MED 01-22 09:05
PROVIDERS: ADMIT Student in an Organized Health Care Education/Training Program; ATTEND Hospitalist